=== PATIENT | female | born 1940 | race Caucasian/White ===

== ENCOUNTER 2018-12-08 08:48 | Inpatient (IN) ==
[2018-12-08] MEDS ORDERED: *HR* OxyCODONE Immed Rel 5 MG TABLET PO PRN (13:47)
[2018-12-08] MEDS ORDERED: Naloxone 0.4 MG/ML INJ IVP PRN (13:52)
[2018-12-08] MEDS: amLODIPine 5 MG TABLET PO SCH (14:49)
[2018-12-08] MEDS: Mirtazapine 15 MG TABLET PO SCH (17:03)
--- NOTE | 2018-12-08 19:31 | Orthopedic Operative Note ---
Date of procedure: 12/08/18 Procedure: DISREGARD THIS NOTE. Was there an school office assistant present: No Estimated blood loss (cc): 0
--- NOTE | 2018-12-08 19:35 | Orthopedic Consult Note ---
Date of Encounter: 12/08/18 Time of Encounter: 19:32 Assessment and Plan (1) Fracture of hip Current Visit: No Status: Acute I did discuss the diagnosis in detail with the patient's over the phone.. The patient does have a displaced left femoral neck fracture. Options include palliative care versus left hip hemiarthroplasty. The patient also does have a very large thoracic aortic aneurysm, and this places her at very high risk for the procedure. She is at risk of aneurysm rupture which would cause almost certain . The patient's is well aware of this risk but still wishes to proceed with left hip hemiarthroplasty in hopes of providing comfort to the patient. I feel that this is very reasonable and there is no option with no risk. The risks of surgery discussed included but were not limited to stiffness, bleeding, infection, blood clots, damage to neurovascular structures, tendons, ligaments, and bone. Also discussed was the risk of continued symptoms and possible need for further procedures. I did discuss the anesthesia risks including stroke, heart attack, and . I did discuss the reasonable, foreseeable postoperative course with the patient. They did wish to proceed and he will be by in the morning to sign the consent. Qualifiers: Encounter type: initial encounter Fracture type: closed Laterality: left Qualified Code(s): S72.002A - Fracture of unspecified part of neck of left femur, initial encounter for closed fracture History of Present Illness HPI: This person is a 78-year-old multiply medically comorbid female with a known large thoracic aortic aneurysm measuring about a centimeters. Given her overall health as being managed nonoperatively. Fall yesterday morning resulting in a left displaced femoral neck fracture. She normally ambulates with a walker and is often confused. She has difficulties verbalizing or complaints. She is not able to tell me about her pain. No new injuries or complaints since. She specifically denies any numbness, tingling, or any other associated signs or symptoms. Past Med Surg Social Fam HX - Past Medical History Medical history: aortic aneurysm, cancer, CVA, hyperlipidemia, hypertension, osteoporosis Additional medical history: cerebral aneurosym Psychiatric history: no psych history - Past Surgical History Additional surgical history: cerebral aneurosym. aortic aneurosym. lt breast lumpectomy. lt knee - Social History Smoking Status: Former smoker Smokeless Tobacco Status: No Alcohol use: occasionally Drug use: none Medications and Allergies Calcium Carbonate/Vitamin D3 [Calcium 500 mg-Vit D3 600 Unit] 600 tab PO DAILY 10/07/18 [History] Metoprolol Succinate [Toprol Xl] 100 mg PO DAILY 10/07/18 [History] Potassium Chloride [K-Tab ER] 20 meq PO DAILY 10/07/18 [History] Simvastatin [Zocor] 10 mg PO DAILY 10/07/18 [History] amLODIPine [Norvasc] 5 mg PO DAILY 10/07/18 [History] Mirtazapine [Remeron] 7.5 mg PO QPM 12/08/18 [History] 3 Allergy/AdvReac Type Severity Reaction Status Date / Time aspirin Allergy Nausea Verified 10/07/18 10:16 ROS unobtainable: due to mental status Physical Exam - Constitutional Vitals: Temp Pulse Resp BP Pulse Ox 98.2 F 84 16 135/96 93 12/08/18 10:34 12/08/18 10:34 12/08/18 10:34 12/08/18 10:34 12/08/18 11:14 Constitutional -Vitals reviewed -The patient is well developed and well nourished. -Mood is pleasant. -The patient is well groomed. Psychiatric -Confusion Respiratory: -Respiratory effort normal Abdomen: -Soft abdomen -Non tender -Non distended: Left upper extremity: -No deformities. The overlying skin is intact. No obvious signs of acute trauma. -No tenderness to palpation throughout. -No significant pain with passive motion of the shoulder, elbow, wrist, and fingers within the limits of the bed. -Unable to neurologically assess due to her mental status. -Radial pulse is present; Fingers have good capillary refill. Right upper extremity: -No deformities. The overlying skin is intact. No obvious signs of acute trauma. -No tenderness to palpation throughout. -No significant pain with passive motion of the shoulder, elbow, wrist, and fingers within the limits of the bed. -Unable to neurologically assess due to her mental status. -Radial pulse is present; Fingers have good capillary refill. Left lower extremity: -The extremity is shortened and externally rotated. The overlying skin is intact. -There is mild tenderness in the groin region as well as the proximal lateral thigh. -Ranging of the left hip does cause pain. -No tenderness along the distal thigh, leg, ankle, foot, or toes. -Able to dorsiflex and plantarflex the ankle and toes. -Unable to neurologically assess due to her mental status. -Toes have good capillary refill. Right lower extremity: -No deformities. The overlying skin is intact. No obvious signs of acute traum a. -No tenderness to palpation throughout. -No pain with passive motion of the hip, knee, ankle, and toes within the limits of the bed. -No pain with axial loading of the thigh. -Able to dorsiflex and plantarflex the ankle and toes. -Unable to neurologically assess due to her mental status. -Toes have good capillary refill. Diagnostic Imaging: I did personally review and interpret x-rays the left hip show a displaced femoral neck fracture. X-rays the left knee do not show any fractures or dislocations. Results - Labs Labs: All other labs normal. Consult Discharge Plan - Plan Referrals: Martin Garcia MD [Primary Care Provider] -
[2018-12-08 21:40] LABS: Basophils % 0.3 %; Hematocrit 37.1 % (35.3-44.9); Hemoglobin 11.9 g/dL (11.5-15.4); Immature Granulocytes % 0.4 % (0-4); Lymphocytes # 1.2 K/mcL (0.6-4.6); Lymphocytes % 8.8 %; Mean Corpuscular HGB Conc 32.1 g/dL (31.6-35.5); Mean Corpuscular Hemoglobin 29.2 pg (28.0-33.3); Mean Corpuscular Volume 91.2 fL (83.0-100.0); Monocytes # 1.2 K/mcL (0.0-1.3); Monocytes % 9.1 %; Neutrophils # 10.7 K/mcL (1.6-8.9); Platelet Count 126 K/mcL (140-400); Red Blood Count 4.07 M/mcL (3.82-4.97); Red Cell Distribution Width 13.8 % (11.5-14.5); Segmented Neutrophils % 81.4 %
[2018-12-08 21:57] LABS: INR 1.1; Prothrombin Time 12.3 Seconds (9.4-12.1)
[2018-12-08 21:59] LABS: Calcium 9.6 mg/dL (8.6-10.3)
--- NOTE | 2018-12-09 06:21 | Internal Med History&Physical ---
Date of Encounter: 12/08/18 Time of Encounter: 19:00 Internal Medicine - H&P: HPI Chief complaint: Left hip fx Admitted From: Home Plans for Post Hospital Care: Transfer [facility] History of present illness: The patient is an 78-year-old woman. She is brought to our hospital from an outside facility, after she experienced a fall/sustained displaced fracture of left hip. She has had history of her multiple falls. They usually happen when she is not using her walker. She has not experienced any chest pain or difficulty breathing recently. Denies coughing and wheezing. She complains of left hip pain. PAST MEDICAL HX: She has had long-standing hypertension, hyperlipidemia and osteoporosis. She has had long-standing thoracic aortic aneurysm. She was diagnosed with cerebral aneurysm in the past. PAST FAMILY HX: Not obtainable from the patient; she is a very poor historian. PAST SOCIAL HX: She is a former smoker. There is no history of alcohol or drug use. REVIEW OF SYSTEMS: All 14 organ systems were reviewed by me with the patient. Positive and pertinent negative findings are listed above. The rest of organ systems is negative. PHYSICAL EXAM: Skin: Free of rash and discoloration. Eyes: Sclera is white. There is no discharge from eyes. ENMT: Oral/pharyngeal mucosa is normal in appearance. There is no discharge from nose or ears. Respiratory: Normal breath sounds with no crackles and wheezes bilaterally. CV: Heart is regular with no gallop or murmur. GI: Abdomen is flat and soft with no palpable mass or visceromegaly. : There is no tenderness in patient's flanks bilaterally. Neuro exam: He has good strength in upper and lower extremities. He has normal eye movements. Psychiatric: He has normal affect. His thought process is appropriate to the situation. ADDITIONAL DATA: X-rays of left hip done in an outside facility showed displaced left hip fracture. Hemoglobin is 11.9 with WBC at 13.1 thousand and platelet count of 126,000. She has normal electrolytes. Creatinine is 1.25. Random glucose is 155. A/P: Displaced left hip fracture. Dr. Draper, orthopedic surgery has been consulted. She will likely need surgical repair despite of the fact that her thoracic aortic aneurysm with severe under increased risk. Thoracic aortic aneurysm. Seems to be stable. Hypertension. Under control. To continue Toprol-XL and Norvasc. Osteoporosis. She takes calcium carbonate/vitamin D3. Past Med Surg Social Fam HX - Past Medical History Medical history: aortic aneurysm, cancer, CVA, hyperlipidemia, hypertension, osteoporosis Additional medical history: cerebral aneurosym Psychiatric history: no psych history - Past Surgical History Additional surgical history: cerebral aneurosym. aortic aneurosym. lt breast lumpectomy. lt knee - Social History Smoking Status: Former smoker Smokeless Tobacco Status: No Alcohol use: occasionally Drug use: none Internal Medicine - H&P: Meds Calcium Carbonate/Vitamin D3 [Calcium 500 mg-Vit D3 600 Unit] 600 tab PO DAILY 10/07/18 [History] Metoprolol Succinate [Toprol Xl] 100 mg PO DAILY 10/07/18 [History] Potassium Chloride [K-Tab ER] 20 meq PO DAILY 10/07/18 [History] Simvastatin [Zocor] 10 mg PO DAILY 10/07/18 [History] amLODIPine [Norvasc] 5 mg PO DAILY 10/07/18 [History] Mirtazapine [Remeron] 7.5 mg PO QPM 12/08/18 [History] Allergy/AdvReac Type Severity Reaction Status Date / Time aspirin Allergy Nausea Verified 10/07/18 10:16 - Constitutional Vitals: Temp Pulse Resp BP Pulse Ox 98.8 F 87 15 151/90 95 12/09/18 01:18 12/09/18 01:18 12/09/18 01:18 12/09/18 01:18 12/09/18 01:18 General appearance: Present: A&O X 2, no acute distress Exam: xx Internal Med - H&P Results - Labs CBC & Chem 7: 12/08/18 21:18 12/08/18 21:18 Labs: Short CBC 12/08/18 Range/Units 21:18 WBC 13.1 H (4.3-11.1) K/mcL Hgb 11.9 (11.5-15.4) g/dL Hct 37.1 (35.3-44.9) % Plt Count 126 L (140-400) K/mcL Neutrophils # 10.7 H (1.6-8.9) K/mcL BMP 12/08/18 21:18 Sodium 138 Potassium 5.0 Chloride 102 Carbon Dioxide 23 BUN 29 H Creatinine 1.25 H Glucose 155 H Calcium 9.6 - Assessment and plan (1) Fracture of hip Current Visit: No Status: Acute Qualifiers: Encounter type: initial encounter Fracture type: closed Laterality: left Qualified Code(s): S72.002A - Fracture of unspecified part of neck of left femur, initial encounter for closed fracture (2) Thoracic aneurysm without mention of rupture Current Visit: Yes Status: Chronic Qualifiers: Presence of rupture: without rupture Qualified Code(s): I71.2 - Thoracic aortic aneurysm, without rupture (3) HTN (hypertension) Current Visit: Yes Status: Chronic Qualifiers: Hypertension type: essential hypertension Qualified Code(s): I10 - Essential (primary) hypertension (4) HLD (hyperlipidemia) Current Visit: Yes Status: Chronic Qualifiers: Hyperlipidemia type: unspecified Qualified Code(s): E78.5 - Hyperlipidemia, unspecified - Time Spent With Patient Total time spent is greater than 50% in coordination of care (as documented) at patient's floor/unit and/or counseling patient: 25 - 35 minutes
[2018-12-09] MEDS: amLODIPine 5 MG TABLET PO SCH (07:53)
[2018-12-09] MEDS ORDERED: Metoprolol XL (24 HR) Succ 50 MG TAB.ER.24H PO SCH (09:00)
--- NOTE | 2018-12-09 11:16 | Internal Med Progress Note ---
Hospitalist Progress Note - Encounter Date of Encounter: 12/09/18 Time of Encounter: 11:00 - Subjective Interval History: Patient presented from [facility] found to have placed left femoral neck fracture status post fall Orthopedics consulted with recommendations for surgical repair - Exam Vitals: Temp Pulse Resp BP Pulse Ox 98.6 F 92 15 111/82 93 12/09/18 07:33 12/09/18 07:33 12/09/18 07:33 12/09/18 07:33 12/09/18 07:33 Exam: Gen.: Nonacute distress, alert and oriented 3 ENT: Mucosal membranes moist Psych: Mood appropriate Skin: Normal color - Assessment and Plan (1) Left displaced femoral neck fracture Current Visit: Yes Status: Acute Assessment and Plan: Patient found to have acute displaced left femoral neck fracture on imaging Orthopedics consulted with recommendation for surgical repair (2) Thoracic aneurysm without mention of rupture Current Visit: Yes Status: Chronic Assessment and Plan: Patient found to have large aneurysm of the descending thoracic aorta measuring 7.[address] on 10/07/18 Patient has been evaluated at [place] by vascular team and apparently patient not surgical candidate per who was at bedside (3) HTN (hypertension) Current Visit: Yes Status: Chronic Assessment and Plan: Continue home dose of beta tello and calcium channel tello (4) HLD (hyperlipidemia) Current Visit: Yes Status: Chronic Assessment and Plan: Continue statin DVT Prophylaxis: DVT prophylaxis per orthopedic recommendations - Time Spent with Patient Total time spent is greater than 50% in coordination of care (as documented) at patient's floor/unit and/or counseling patient: Internal Medicine: Result - Labs CBC & Chem 7: 12/09/18 11:00 12/09/18 11:00 Labs: Short CBC 12/08/18 Range/Units 21:18 WBC 13.1 H (4.3-11.1) K/mcL Hgb 11.9 (11.5-15.4) g/dL Hct 37.1 (35.3-44.9) % Plt Count 126 L (140-400) K/mcL Neutrophils # 10.7 H (1.6-8.9) K/mcL BMP 12/08/18 21:18 Sodium 138 Potassium 5.0 Chloride 102 Carbon Dioxide 23 BUN 29 H Creatinine 1.25 H Glucose 155 H Calcium 9.6 - ABG Interpretation ABG results: PT/INR, D-dimer PT 12.3 Seconds (9.4-12.1) H 12/08/18 21:18 Consult Discharge Plan - Plan Referrals: Martin Garcia MD [Primary Care Provider] - (2) Thoracic aneurysm without mention of rupture Qualifiers: Presence of rupture: without rupture Qualified Code(s): I71.2 - Thoracic aortic aneurysm, without rupture (3) HTN (hypertension) Qualifiers: Hypertension type: essential hypertension Qualified Code(s): I10 - Essential (primary) hypertension (4) HLD (hyperlipidemia) Qualifiers: Hyperlipidemia type: unspecified Qualified Code(s): E78.5 - Hyperlipidemia, unspecified
[2018-12-09 11:33] LABS: Basophils % 0.3 %; Eosinophils % 0.1 %; Hematocrit 34.9 % (35.3-44.9); Hemoglobin 11.2 g/dL (11.5-15.4); Immature Granulocytes % 0.6 % (0-4); Lymphocytes # 0.9 K/mcL (0.6-4.6); Lymphocytes % 6.9 %; Mean Corpuscular HGB Conc 32.1 g/dL (31.6-35.5); Mean Corpuscular Hemoglobin 28.7 pg (28.0-33.3); Mean Corpuscular Volume 89.5 fL (83.0-100.0); Mean Platelet Volume 11.1 fL (9.4-12.4); Monocytes % 7.7 %; Neutrophils # 10.5 K/mcL (1.6-8.9); Platelet Count 108 K/mcL (140-400); Red Cell Distribution Width 13.9 % (11.5-14.5); Segmented Neutrophils % 84.4 %
[2018-12-09 11:42] LABS: BUN/Creatinine Ratio 25 (6-26); Blood Urea Nitrogen 27 mg/dL (8-23); Calcium 9.2 mg/dL (8.6-10.3); Carbon Dioxide 24 mEq/L (23-29); Chloride 102 mEq/L (98-107); Glucose 133 mg/dL (70-105); Osmolality,Calculated 293 (280-300); Sodium 138 mEq/L (136-145); eGFR For Non-African Americans 50 (> 60)
--- NOTE | 2018-12-09 14:23 | Anesthesia Evaluation PreOp ---
Date of Encounter: 12/09/18 Time of Encounter: 14:20 - Past History Planned Operation: Left Paul-Arthroplasty Hip Cardiac History: HTN, Hyperlipidemia, Other (Thoracic Aneurysm) Pulmonary History: Denies Any Significant HX [employer]ESSION[employer] History: CVA (Cerebral Aneurysm), Other (Dementia) Other Medical History: Denies Any Significant HX Anesthesia History: No Prior Anesthetic Complications : No Test: Negative Alcohol Use: occasionally Drug use: none Medications and Allergies Calcium Carbonate/Vitamin D3 [Calcium 500 mg-Vit D3 600 Unit] 600 tab PO DAILY 10/07/18 [History] Metoprolol Succinate [Toprol Xl] 100 mg PO DAILY 10/07/18 [History] Potassium Chloride [K-Tab ER] 20 meq PO DAILY 10/07/18 [History] Simvastatin [Zocor] 10 mg PO DAILY 10/07/18 [History] amLODIPine [Norvasc] 5 mg PO DAILY 10/07/18 [History] Mirtazapine [Remeron] 7.5 mg PO QPM 12/08/18 [History] Allergy/AdvReac Type Severity Reaction Status Date / Time aspirin Allergy Nausea Verified 10/07/18 10:16 - Meds/Allergy Pre-op Review Medications Reviewed: Yes Allergies Reviewed: Yes Beta Blockers on Current Med List: No Anesthesia Results - Labs 12/09/18 11:00 12/09/18 11:00 Anesthesia Exam O2 Sat Weight 40.9 kg O2 Sat by Pulse Oximetry 94 O2 Sat by Pulse Oximetry 93 O2 Sat by Pulse Oximetry 95 O2 Sat by Pulse Oximetry 97 Vital Signs Temp Pulse Resp BP Pulse Ox 98.2 F 84 16 135/96 92 12/08/18 10:34 12/08/18 10:34 12/08/18 10:34 12/08/18 10:34 12/08/18 10:34 Height: 5'7 Weight: 90 lbs NPO (# of Hours): MN Pain Scale: 1 - HEENT Pupil (Motor): Pupils equal, EOMI Oral Opening: Less than or equal to 3 - [employer] LOC: Oriented [employer] Motor: Normal RUE, Normal LUE, Normal RLE, Normal LLE, Normal Face [employer] Sensory: Normal: RUE, LUE, RLE, LLE, Face - Cardiac Rhythm: Regular Murmur: None JVD: No Carotid Bruit: No - Pulmonary Breath Sounds: bilateral Clear Respiratory Effort: Symmetrical Anesthesia Assess/Plan ASA Score: 4 Level of consciousness: Cooperative, Oriented Anesthetic Plan: Spinal Monitoring Plan: Standard Monitors (Discussed SAB, possible GA, agrees to proceed) Recovery Plan: PACU
[2018-12-09] MEDS ORDERED: Ethanol\\Acetic Acid\\Na Ace\\Ben 1,000 ML IRRIG.SOLN IR ONE (15:56)
[2018-12-09] MEDS ORDERED: Lidocaine -MPF 1% 5 ML AMPUL ONE (15:56)
[2018-12-09] MEDS ORDERED: Vancomycin 1,000 MG VIAL ONE (15:56)
[2018-12-09] MEDS ORDERED: *HR* FentaNYL (PF) 100 MCG/2 ML VIAL ONE (15:58)
[2018-12-09] MEDS ORDERED: *HR* Midazolam HCl 2 MG/2 ML VIAL ONE (15:58)
--- NOTE | 2018-12-09 16:07 | Orthopedics Progress Note ---
Date of Encounter: 12/09/18 Time of Encounter: 16:03 - Assessment and Plan (1) Fracture of hip Current Visit: No Status: Acute Qualifiers: Encounter type: initial encounter Fracture type: closed Laterality: left Qualified Code(s): S72.002A - Fracture of unspecified part of neck of left femur, initial encounter for closed fracture Subjective Interval history: S: No new issues or complaints. O: Afebrile and vital signs are stable Left leg is shortened and externally rotated She can grossly flex and extend the ankle and toes A: Displaced left femoral neck fracture P: I did have a long discussion with the patient's family, particularly the who makes medical decisions for the patient. The patient does have a displaced left femoral neck fracture and will proceed with left hip hemiarthroplasty in order to provide pain control for the patient. The is aware that the patient has very high risk for the procedure but wishes to proceed in hopes of achieving pain control. In the setting of an intraoperative complication requiring aggressive forms of treatment, such as chest compressions, they wish to avoid having such measures and would like comfort care only. Objective Vital signs: Vital Signs Temp Pulse Resp BP Pulse Ox 12/09/18 12:52 98.6 F 95 16 131/92 94 12/09/18 07:33 98.6 F 92 15 111/82 93 12/09/18 01:18 98.8 F 87 15 151/90 95 12/08/18 21:12 97.8 F 88 17 142/88 97 Intake and Output 12/09/18 12/09/18 12/09/18 07:59 15:59 23:59 Intake Total 0 / 0 0 / 0 Output Total 100 / 100 250 / 250 Balance -100 / -100 -250 / -250 Intake: Oral 0 / 0 0 / 0 Output: Catheter 100 / 100 250 / 250 Other: Meal Lunch Percent of Meal Consumed 0% Weight 40.9 kg Patient Weight 12/09/18 23:59 Weight 40.9 kg - Labs CBC & BMP: 12/09/18 11:00 12/09/18 11:00 Labs: Abnormal lab results WBC 12.5 K/mcL (4.3-11.1) H 12/09/18 11:00 Hgb 11.2 g/dL (11.5-15.4) L 12/09/18 11:00 Hct 34.9 % (35.3-44.9) L 12/09/18 11:00 Plt Count 108 K/mcL (140-400) L 12/09/18 11:00 Neutrophils # 10.5 K/mcL (1.6-8.9) H 12/09/18 11:00 PT 12.3 Seconds (9.4-12.1) H 12/08/18 21:18 BUN 27 mg/dL (8-23) H 12/09/18 11:00 Est GFR (Non-Af Amer) 50 (> 60) L 12/09/18 11:00 Glucose 133 mg/dL (70-105) H 12/09/18 11:00 Consult Discharge Plan - Plan Referrals: Martin Garcia MD [Primary Care Provider] -
[2018-12-09] MEDS ORDERED: *HR* Propofol 200 MG/20 ML VIAL IVP ONE (16:11)
[2018-12-09] MEDS ORDERED: *HR* PHENYLEPHRINE 1,000 MCG/10 ML SYRINGE IVP ONE (16:12)
[2018-12-09] MEDS ORDERED: Lidocaine -MPF 2% 2 ML VIAL ONE (16:13)
--- NOTE | 2018-12-09 16:28 | Anesthesia Procedures ---
Date of Encounter: 12/09/18 Time of Encounter: 14:20 Procedures: Anesthesia - Epidural/Spinal Patient ID/Chart reviewed: Yes Patient examined: Yes Supplemental Oxygen: Nasal Cannula (2) Supplemental Oxygen Rate (L/min): 2 Sedation: Versed (mg): 1 Sedation: Fentanyl (mcg): 50 Site Prep: Aseptic Technique, Sterile prep and drape, 0.5% Chlorhexidine/Alcohol Patient position: right lateral decubitus Local Anesthetic: Lidocaine 1% Amount of Local Anesthetic used: 3 Interspace Used: L3-L4 Blood: No CSF: Yes Paresthesia: No Spinal Needle Gauge: 22 Spinal Dose: 12 mg isobaric marcaine Procedure: Pt Rt Lateral Decubitus, sterile Prep Drape Chlorhexadine, Midline L3-4, plus CSF using 22 gauge spinal needle Patient tolerated procedure well
[2018-12-09] MEDS ORDERED: Ringers Solution, Lactated 1,000 ML ONE (18:16)
--- NOTE | 2018-12-09 18:35 | Orthopedic Operative Note ---
Date of procedure: 12/09/18 Procedure: OPERATIVE REPORT DATE OF PROCEDURE: 12/09/2018 SURGEON: Kirk Draper MD ALBERENE STONE SETTER(S): There were no assistants PREOPERATIVE DIAGNOSIS: Left displaced femoral neck fracture POSTOPERATIVE DIAGNOSIS: Left displaced femoral neck fracture PROCEDURE: Left hip hemiarthroplasty ANESTHESIA: MAC and spinal PREOPERATIVE ANTIBIOTICS: 2 g of Ancef ESTIMATED BLOOD LOSS: 150 milliliters SPECIMENS: Left femoral head IMPLANTS: Biomet Echo Fracture stem size 9 with standard offset; 44 mm bipolar head with +9 neck PREOPERATIVE NOTE AND INDICATIONS: This patient is a 78-year-old female who sustained a displaced left femoral neck fracture. She does have an a centimeter thoracic aortic aneurysm and was high risk. The family did wish to proceed with left hip hemiarthroplasty for pain control purposes. The surgical plan was discussed with the patient spouse. The risks, benefits, alternatives, and potential complications of this procedure were discussed with the patient including injury to veins, arteries, nerves, tendons, ligaments, and bone. Also discussed were the risks of infection, bleeding, pain, blood clots, the possible need for a blood transfusion, the possible need for further procedures, heart attack, stroke, and . Additional risks include dislocation, fracture, and hardware loosening. All of this was explained in simple terms, and the patient's spouse verbalized understanding and wished to proceed. Consent was given to proceed with surgery. PROCEDURE: The patient was seen in the preoperative holding area where the identify and the consent were confirmed. The left hip was marked. Final questions were answered. The patient was brought back to the operating room. A huddle was performed with the patient and all vital surgical team members confirming patient identity, the correct procedure, and the correct operative site. General anesthesia was administered. The patient was placed supine on the operating room table and then placed in the right lateral decubitus position. The axillary roll was placed and all bony prominences were padded. The left lower extremity was prepped and draped in the usual sterile fashion. A surgical time out was performed immediately preceding the incision with all personnel in the operating room to confirm patient identity, the correct operative site and extremity, correct radiographic studies, availability of appropriate surgical equipment, and agreement on the planned procedure. A 15 cm longitudinal curvilinear incision was made and dissection proceeded through the subcutaneous tissue using a Bovie for electrocautery. The fascia was encountered and incised splitting the fibers of the gluteus serina proximally. The Charnley retractor was placed. A Cobra was placed under the gluteus medius and the piriformis was taken down and tagged. While internally rotating the femur the short external rotators and the capsule was taken down in 1 sleeve. This exposed the fracture and an osteotomy was made 1 cm above the lesser trochanter. The femoral head was removed with a corkscrew. Pulvinar and the round ligament were debrided. The cartilage of the acetabulum was intact. The femoral head was sized and the 44 mm sizer fit appropriately. The femoral shaft was elevated and a box osteotome was used to lateralize. The canal finder was used and shaft reaming went up to a size 11 mm. Broaching commenced and the 10 mm broach fit nicely and had good rotational stability. The trial head and neck were placed and the hip was articulated and felt to be accurate length. The hip was stable through a functional range of motion. The initial plan was for a cemented stem. The hip was disarticulated and the trial components were removed. The hip was washed with 3 L of saline. The definitive collared 9 mm stem was placed in the canal to check fit, and actually fit very nicely with excellent rotational stability. Therefore, it was left in place as a press fit. The trial head was placed with a standard neck and 42 mm head. The hip was articulated and noted to be short. After trying the +6 and +9, the +9 neck felt to be a good length. The definitive head and neck were impacted on to the femoral head. After final irrigation 1 g of vancomycin powder was placed into the hip joint and the capsule was closed with FiberWire stitches through drill holes in the greater trochanter and the piriformis was repaired to the gluteus medius insertion. The Charnley retractor was removed and the wound was irrigated and the fascia closed with 0 Vicryl stitches. The skin was closed with a combination of 0 Vicryl, 3-0 Vicryl, and lew. A sterile honeycomb dressing was applied. The patient was placed supine in her hospital bed. The instrument, sponge, and needle counts were correct after wound closure. POST OPERATIVE PLAN: Weight Bearing: Weightbearing as tolerated to bilateral lower extremities Activity: Activities as tolerated with the assistance of therapy Wound Care: Keep the dressing clean, dry, and intact. Pain Control: Per the hospitalist Perioperative antibiotic prophylaxis: 2 g of Ancef Social work for discharge planning Follow Up: 2 weeks Was there an cashier assistant present: No Estimated blood loss (cc): 1
[2018-12-09] MEDS ORDERED: Ondansetron 4 MG/2 ML VIAL IVP PRN (19:27)
[2018-12-09] MEDS ORDERED: Naloxone 0.4 MG/ML INJ IVP PRN (19:27)
[2018-12-10] MEDS: *HR* Enoxaparin 30 MG/0.3 ML SYRINGE SQ SCH (05:56)
--- NOTE | 2018-12-10 07:48 | Orthopedics Progress Note ---
Date of Encounter: 12/10/18 Time of Encounter: 07:42 - Assessment and Plan (1) Fracture of hip Current Visit: No Status: Acute Qualifiers: Encounter type: initial encounter Fracture type: closed Laterality: left Qualified Code(s): S72.002A - Fracture of unspecified part of neck of left femur, initial encounter for closed fracture Subjective Interval history: S: No new complaints. Pain controlled O: Afebrile and vital signs are stable Dressing is clean, dry, and intact No significant pain with passive motion of the left hip. Neurovascularly intact distally Xray shows good alignment of the prosthesis Linear shadow on one view just distal to the implant, probable nutrient vessel. A: Displaced left femoral neck fracture P: At this point I will obtain a CT scan just to confirm that there is rosalina a nondisplaced fracture at the tip of the stem. Otherwise therapy today after the CT scan Carr out today Low dose Lovenox for DVT prophylaxis 28 days I will change the dressing tomorrow. Objective Vital signs: Vital Signs Temp Pulse Resp BP Pulse Ox 12/10/18 07:18 98.8 F 94 17 110/79 94 12/10/18 05:08 98.6 F 99 14 100/82 100 12/10/18 00:33 98.2 F 64 16 119/53 98 12/09/18 19:19 97.2 F L 90 14 118/88 92 12/09/18 18:58 97.2 F L 81 16 98 12/09/18 18:48 82 16 122/98 98 12/09/18 18:38 97.2 F L 83 16 115/92 96 12/09/18 18:28 83 16 108/86 95 12/09/18 18:18 81 16 104/85 98 12/09/18 18:08 97.2 F L 82 16 101/77 98 12/09/18 16:19 87 95/66 96 12/09/18 12:52 98.6 F 95 16 131/92 94 Intake and Output 12/09/18 12/09/18 12/10/18 15:59 23:59 07:59 Intake Total 0 / 0 200 / 200 Output Total 250 / 250 150 / 150 400 / 400 Balance -250 / -250 -150 / -150 -200 / -200 Intake: IV Fluids 100 / 100 Ancef 2,000 MG In 0.9 % Sodium 100 / 100 Chloride 100 ML @ 200 mls/hr IVPB Q8HR OSIEL Rx#:[id number] Oral 0 / 0 100 / 100 Output: Urine 0 / 0 400 / 400 Estimated Blood Loss 150 / 150 Catheter 250 / 250 Other: Meal Lunch Percent of Meal Consumed 0% Stool Size Small Stool Consistency soft Stool Color Brown # Bowel Movements 1 - Labs CBC & BMP: 12/09/18 11:00 12/09/18 11:00 Labs: Abnormal lab results WBC 12.5 K/mcL (4.3-11.1) H 12/09/18 11:00 Hgb 11.2 g/dL (11.5-15.4) L 12/09/18 11:00 Hct 34.9 % (35.3-44.9) L 12/09/18 11:00 Plt Count 108 K/mcL (140-400) L 12/09/18 11:00 Neutrophils # 10.5 K/mcL (1.6-8.9) H 12/09/18 11:00 PT 12.3 Seconds (9.4-12.1) H 12/08/18 21:18 BUN 27 mg/dL (8-23) H 12/09/18 11:00 Est GFR (Non-Af Amer) 50 (> 60) L 12/09/18 11:00 Glucose 133 mg/dL (70-105) H 12/09/18 11:00 Consult Discharge Plan - Plan Referrals: Martin Garcia MD [Primary Care Provider] -
[2018-12-10] MEDS: Metoprolol XL (24 HR) Succ 50 MG TAB.ER.24H PO SCH (08:07)
[2018-12-10] MEDS: amLODIPine 5 MG TABLET PO SCH (08:07)
[2018-12-10 08:11] LABS: Hematocrit 32.8 % (35.3-44.9); Hemoglobin 9.8 g/dL (11.5-15.4)
[2018-12-10 08:28] LABS: Calcium 8.6 mg/dL (8.6-10.3)
--- NOTE | 2018-12-10 12:21 | Internal Med Progress Note ---
Hospitalist Progress Note - Encounter Date of Encounter: 12/10/18 Time of Encounter: 09:20 - Subjective Interval History: Patient is lying down in bed. She reports that her pain is well controlled. Denies any fevers or chills overnight. No dizziness or lightheadedness. She underwent surgery yesterday evening with no acute issues. - Exam Vitals: Temp Pulse Resp BP Pulse Ox 97.7 F 79 15 118/88 93 12/10/18 11:10 12/10/18 11:10 12/10/18 11:10 12/10/18 11:10 12/10/18 11:10 Exam: General: Patient is alert, no acute distress, oriented x 3 ENT: Mucous membranes moist Respiratory: Good respiratory effort. Normal breath sounds. No wheezing or crackles. Cardiovascular: Regular rate and rhythm. s1 and s2 normal. systolic murmur present. No pedal edema Abdomen: Abdomen is soft, nontender. Bowel sounds are present Musculoskeletal: Left hip surgical site bandaged. Tender to palpation. Skin: warm, dry, intact. Pallor present Neuro: Alert oriented x 3 normal cranial nerves, no focal deficits - Assessment and Plan (1) Left displaced femoral neck fracture Current Visit: Yes Status: Acute Assessment and Plan: Patient is status post left hip hemiarthroplasty. Orthopedics following. Awaiting physical therapy evaluation. Moderate risk for complications. (2) Thoracic aneurysm without mention of rupture Current Visit: Yes Status: Chronic Assessment and Plan: Continue follow-up with accounting coordinator as outpatient. Patient has previously been deemed to be not a surgical candidate for aneurysm repair (3) HTN (hypertension) Current Visit: Yes Status: Chronic Assessment and Plan: Blood pressure is well controlled at this time. Continue metoprolol (4) HLD (hyperlipidemia) Current Visit: Yes Status: Chronic Assessment and Plan: Continue simvastatin (5) Pelvic fracture Current Visit: Yes Status: Acute Assessment and Plan: Patient with acute right parasymphyseal fracture and subacute sacral and left pubic rami fracture on CT scan done today. Continue supportive care. Pain control. Follow orthopedics recommendations DVT Prophylaxis: lovenox 30mg SQ daily - Time Spent with Patient Total time spent is greater than 50% in coordination of care (as documented) at patient's floor/unit and/or counseling patient: Internal Medicine: Result - Labs CBC & Chem 7: 12/10/18 07:31 12/10/18 07:31 Labs: Short CBC 12/10/18 Range/Units 07:31 Hgb 9.8 L (11.5-15.4) g/dL Hct 32.8 L (35.3-44.9) % BMP 12/10/18 07:31 Sodium 138 Potassium 4.0 Chloride 104 Carbon Dioxide 23 BUN 33 H Creatinine 1.15 Glucose 133 H Calcium 8.6 - ABG Interpretation ABG results: PT/INR, D-dimer PT 12.3 Seconds (9.4-12.1) H 12/08/18 21:18 - Impressions Impressions Hip X-Ray 12/09/18 18:07 IMPRESSION: Satisfactory alignment, left hip arthroplasty. D/ / Robbie Flynn MD / Robbie Flynn MD Interpreting Provider: Robbie Flynn MD Hip CT 12/10/18 07:40 IMPRESSION: 1. Acute right parasymphyseal fracture, new since 10/07/2018. 2. Subacute sacral and left pubic rami fractures. 3. No bony complication at the left hip arthroplasty site. 4. Numerous foci of soft tissue gas involving the left hip musculature, consistent with recent surgery. 5. Large amount of stool in the rectum. 6. Air within the urinary bladder, correlate for recent instrumentation. D/ / 12/10/2018 10:49:46 Huber Mendoza MD / sue Interpreting Provider: Huber Mendoza MD Consult Discharge Plan - Plan Referrals: Martin Garcia MD [Primary Care Provider] - (2) Thoracic aneurysm without mention of rupture Qualifiers: Presence of rupture: without rupture Qualified Code(s): I71.2 - Thoracic aortic aneurysm, without rupture (3) HTN (hypertension) Qualifiers: Hypertension type: essential hypertension Qualified Code(s): I10 - Essential (primary) hypertension (4) HLD (hyperlipidemia) Qualifiers: Hyperlipidemia type: unspecified Qualified Code(s): E78.5 - Hyperlipidemia, unspecified (5) Pelvic fracture Qualifiers: Encounter type: initial encounter Pelvic bone location: multiple parts Fracture type: closed Fracture alignment: without disruption of pelvic ring Qualified Code(s): S32.82XA - Multiple fractures of pelvis without disruption of pelvic ring, initial encounter for closed fracture
[2018-12-10] MEDS: *HR* OxyCODONE Immed Rel 5 MG TABLET PO PRN (23:15)
[2018-12-10] MEDS: Mirtazapine 15 MG TABLET PO SCH (23:18)
[2018-12-11] MEDS: *HR* Enoxaparin 30 MG/0.3 ML SYRINGE SQ SCH (06:24)
[2018-12-11 07:39] LABS: Basophils % 0.2 %; Hematocrit 26.6 % (35.3-44.9); Hemoglobin 8.6 g/dL (11.5-15.4); Immature Granulocytes % 0.9 % (0-4); Lymphocytes # 0.8 K/mcL (0.6-4.6); Lymphocytes % 7.5 %; Mean Corpuscular HGB Conc 32.3 g/dL (31.6-35.5); Mean Corpuscular Hemoglobin 29.2 pg (28.0-33.3); Mean Corpuscular Volume 90.2 fL (83.0-100.0); Mean Platelet Volume 12.3 fL (9.4-12.4); Monocytes # 0.8 K/mcL (0.0-1.3); Monocytes % 7.2 %; Neutrophils # 9.4 K/mcL (1.6-8.9); Nucleated Red Blood Cells 0.4 /100 WBC (0); Red Blood Count 2.95 M/mcL (3.82-4.97); Red Cell Distribution Width 13.7 % (11.5-14.5); Segmented Neutrophils % 84.2 %
[2018-12-11 07:40] LABS: Platelet Count 94 K/mcL (140-400)
[2018-12-11 08:00] LABS: Calcium 8.1 mg/dL (8.6-10.3); Potassium 3.6 mEq/L (3.5-5.1)
[2018-12-11] MEDS: Metoprolol XL (24 HR) Succ 50 MG TAB.ER.24H PO SCH (10:25)
[2018-12-11] MEDS: amLODIPine 5 MG TABLET PO SCH (10:25)
[2018-12-11] MEDS: Ringers Solution, Lactated 1,000 ML IVC SCH ×2 (13:44→19:04)
--- NOTE | 2018-12-11 15:11 | Internal Med Progress Note ---
Hospitalist Progress Note - Encounter Date of Encounter: 12/11/18 Time of Encounter: 09:30 - Subjective Interval History: Patient is lying down in bed. Very somnolent. Awakes but falls asleep easily. No acute issues reported overnight. However patient has poor appetite and has not eaten much since hospitalization. Discussed this with the patient's later today. He reports that patient has always eaten very little since her hospitalization in October. She will drink milkshakes and liquids without any issues. - Exam Vitals: Temp Pulse Resp BP Pulse Ox 98.3 F 80 16 129/98 94 12/11/18 12:06 12/11/18 12:06 12/11/18 12:06 12/11/18 12:06 12/11/18 12:06 Exam: General: Patient is very somnolent but awakes easily. ENT: Mucous membranes moist Respiratory: Good respiratory effort. Normal breath sounds. No wheezing or crackles. Cardiovascular: Regular rate and rhythm. s1 and s2 normal No clicks, rubs, gallops, or murmurs. No pedal edema Abdomen: Abdomen is soft, nontender. Bowel sounds are present Musculoskeletal: Tenderness to palpation at left hip Skin: warm, dry, intact. Neuro: Alert oriented x 3 normal cranial nerves, no focal deficits - Assessment and Plan (1) Left displaced femoral neck fracture Current Visit: Yes Status: Acute Assessment and Plan: Continue supportive care. Pain control. On Lovenox for anticoagulation. Continue PTOT. Awaiting placement to skilled rehabilitation. Patient's status has been confirmed to be DNR/DNI per discussion with who is the DPOA. also does not want any kind of artificial methods of feeding in case patient does not eat. He wishes for her to go to [facility]. (2) Thoracic aneurysm without mention of rupture Current Visit: Yes Status: Chronic Assessment and Plan: Follow-up outpatient with PCP. Patient is not a surgical candidate. (3) HTN (hypertension) Current Visit: Yes Status: Chronic Assessment and Plan: Blood pressure remains well controlled (4) HLD (hyperlipidemia) Current Visit: Yes Status: Chronic Assessment and Plan: Continue simvastatin (5) Pelvic fracture Current Visit: Yes Status: Acute Assessment and Plan: Old fracture per . Supportive care. No surgical intervention needed at this time. (6) Anemia Current Visit: Yes Status: Acute Assessment and Plan: Acute on chronic anemia. Hemoglobin 8.6 today. Likely dilutional along with fracture and intraoperative bleeding. We will continue to monitor blood counts closely. No overt bleeding. DVT Prophylaxis: Continue subcutaneous Lovenox - Time Spent with Patient Total time spent is greater than 50% in coordination of care (as documented) at patient's floor/unit and/or counseling patient: Internal Medicine: Result - Labs CBC & Chem 7: 12/11/18 07:03 12/11/18 07:03 Labs: Short CBC 12/11/18 Range/Units 07:03 WBC 11.1 (4.3-11.1) K/mcL Hgb 8.6 L (11.5-15.4) g/dL Hct 26.6 L (35.3-44.9) % Plt Count 94 L (140-400) K/mcL Neutrophils # 9.4 H (1.6-8.9) K/mcL BMP 12/11/18 07:03 Sodium 138 Potassium 3.6 Chloride 103 Carbon Dioxide 22 L BUN 44 H Creatinine 1.17 Glucose 140 H Calcium 8.1 L - ABG Interpretation ABG results: PT/INR, D-dimer PT 12.3 Seconds (9.4-12.1) H 12/08/18 21:18 Consult Discharge Plan - Plan Referrals: Martin Garcia MD [Primary Care Provider] - (2) Thoracic aneurysm without mention of rupture Qualifiers: Presence of rupture: without rupture Qualified Code(s): I71.2 - Thoracic aortic aneurysm, without rupture (3) HTN (hypertension) Qualifiers: Hypertension type: essential hypertension Qualified Code(s): I10 - Essential (primary) hypertension (4) HLD (hyperlipidemia) Qualifiers: Hyperlipidemia type: unspecified Qualified Code(s): E78.5 - Hyperlipidemia, unspecified (5) Pelvic fracture Qualifiers: Encounter type: initial encounter Pelvic bone location: multiple parts Fracture type: closed Fracture alignment: without disruption of pelvic ring Qualified Code(s): S32.82XA - Multiple fractures of pelvis without disruption of pelvic ring, initial encounter for closed fracture (6) Anemia Qualifiers: Anemia type: other cause Other causes of anemia: acute posthemorrhagic Qualified Code(s): D62 - Acute posthemorrhagic anemia
[2018-12-11] MEDS: Mirtazapine 15 MG TABLET PO SCH ×2 (19:04→20:20)
--- NOTE | 2018-12-11 19:08 | Orthopedics Progress Note ---
Date of Encounter: 12/11/18 Time of Encounter: 07:45 - Assessment and Plan (1) Fracture of hip Current Visit: No Status: Acute Qualifiers: Encounter type: initial encounter Fracture type: closed Laterality: left Qualified Code(s): S72.002A - Fracture of unspecified part of neck of left femur, initial encounter for closed fracture Subjective Interval history: LATE ENTRY OF 07:45 ENCOUNTER S: No new complaints. Pain controlled O: Afebrile and vital signs are stable Dressing is changed; wound is clean and dry. No significant pain with passive motion of the left hip. Neurovascularly intact distally A: Displaced left femoral neck fracture post left hemiarthroplasty P: Resume post op care Objective Vital signs: Vital Signs Temp Pulse Resp BP Pulse Ox 12/11/18 18:39 99.1 F 69 16 127/80 96 12/11/18 12:06 98.3 F 80 16 129/98 94 12/11/18 06:37 97.7 F 96 14 108/88 98 12/11/18 04:04 98.2 F 87 16 135/77 93 12/10/18 22:31 98.0 F 82 16 135/95 96 12/10/18 19:19 98.7 F 72 16 95/66 98 Intake and Output 12/11/18 12/11/18 12/11/18 07:59 15:59 23:59 Intake Total 200 / 200 Output Total 300 / 300 Balance -300 / -300 200 / 200 Intake: Oral 200 / 200 Output: Straight Cath 300 / 300 Other: Meal Dinner Percent of Meal Consumed 5% # Urine Diapers 1 - Labs CBC & BMP: 12/11/18 07:03 12/11/18 07:03 Labs: Abnormal lab results RBC 2.95 M/mcL (3.82-4.97) L 12/11/18 07:03 Hgb 8.6 g/dL (11.5-15.4) L 12/11/18 07:03 Hct 26.6 % (35.3-44.9) L 12/11/18 07:03 Plt Count 94 K/mcL (140-400) L 12/11/18 07:03 Neutrophils # 9.4 K/mcL (1.6-8.9) H 12/11/18 07:03 Nucleated RBCs/100 WBC 0.4 /100 WBC (0) H 12/11/18 07:03 PT 12.3 Seconds (9.4-12.1) H 12/08/18 21:18 Carbon Dioxide 22 mEq/L (23-29) L 12/11/18 07:03 BUN 44 mg/dL (8-23) H 12/11/18 07:03 Est GFR ( Amer) 54 (> 60) L 12/11/18 07:03 Est GFR (Non-Af Amer) 45 (> 60) L 12/11/18 07:03 BUN/Creatinine Ratio 38 (6-26) H 12/11/18 07:03 Glucose 140 mg/dL (70-105) H 12/11/18 07:03 Calcium 8.1 mg/dL (8.6-10.3) L 12/11/18 07:03 Consult Discharge Plan - Plan Referrals: Martin Garcia MD [Primary Care Provider] -
[2018-12-12] MEDS: Ringers Solution, Lactated 1,000 ML IVC SCH (02:51)
[2018-12-12] MEDS: *HR* Enoxaparin 30 MG/0.3 ML SYRINGE SQ SCH (05:26)
[2018-12-12 07:22] LABS: Basophils % 0.2 %; Eosinophils # 0.1 K/mcL (0.0-0.6); Eosinophils % 0.6 %; Hematocrit 24.7 % (35.3-44.9); Hemoglobin 7.9 g/dL (11.5-15.4); Lymphocytes % 9.3 %; Mean Corpuscular Hemoglobin 28.9 pg (28.0-33.3); Mean Corpuscular Volume 90.5 fL (83.0-100.0); Mean Platelet Volume 10.9 fL (9.4-12.4); Monocytes # 0.9 K/mcL (0.0-1.3); Monocytes % 8.4 %; Neutrophils # 8.5 K/mcL (1.6-8.9); Nucleated Red Blood Cells 0.5 /100 WBC (0); Platelet Count 103 K/mcL (140-400); Red Blood Count 2.73 M/mcL (3.82-4.97); Segmented Neutrophils % 80.5 %
[2018-12-12 07:42] LABS: BUN/Creatinine Ratio 41 (6-26); Blood Urea Nitrogen 39 mg/dL (8-23); Calcium 8.2 mg/dL (8.6-10.3); Carbon Dioxide 26 mEq/L (23-29); Chloride 106 mEq/L (98-107); Glucose 122 mg/dL (70-105); Osmolality,Calculated 301 (280-300); Potassium 3.1 mEq/L (3.5-5.1); Sodium 140 mEq/L (136-145); eGFR For Non-African Americans 56 (> 60)
[2018-12-12] MEDS: amLODIPine 5 MG TABLET PO SCH (08:41)
[2018-12-12] MEDS: Metoprolol XL (24 HR) Succ 50 MG TAB.ER.24H PO SCH (08:41)
[2018-12-12] MEDS ORDERED: 0.9 % Sodium Chloride 250 ML ONE (11:23)
--- NOTE | 2018-12-12 15:28 | Discharge Summary ---
- NOTES TO OUTPATIENT PROVIDER Notes to Outpatient Provider: Patient with a history of hypertension, hyperlipidemia and osteoporosis was hospitalized here after a fall resulting in fracture of the left femoral neck. Patient was evaluated by orthopedics and recommended surgery. She underwent surgery with left hip hemiarthroplasty on 12/09. Since then she has been recovering well in the hospital. Patient also has recent pelvic fracture for which she was being managed conservatively. She has been evaluated by physical therapy and recommended placement to skilled rehabilitation. Postoperatively, patient has had decrease in her hemoglobin level most likely due to intraoperative and fracture related blood loss. Her hemoglobin level today was 7.9 and she received 1 unit PRBC transfusion. Patient also has poor appetite and is only drinking liquids which has been ongoing for some time. Patient's CODE STATUS is DNR Comfort Care/DNI. Patient will be discharged to skilled rehabilitation once she is accepted there. She will follow up with orthopedics in 2 weeks. Patient will be on anticoagulation with Lovenox for 28 days postoperatively. Recommend monitoring her hemoglobin levels closely. Orders not resulted at time of discharge: Pending orders 12/09/18 17:37 Surgical Pathology [PTH] Routine Date of Encounter: 12/12/18 Time of Encounter: 15:24 - Discharge Diagnosis (1) Left displaced femoral neck fracture Priority: Primary Status: Acute (2) Thoracic aneurysm without mention of rupture Priority: Secondary Status: Chronic Qualifiers: Presence of rupture: without rupture Qualified Code(s): I71.2 - Thoracic aortic aneurysm, without rupture (3) HTN (hypertension) Priority: Secondary Status: Chronic Qualifiers: Hypertension type: essential hypertension Qualified Code(s): I10 - Essential (primary) hypertension (4) HLD (hyperlipidemia) Priority: Secondary Status: Chronic Qualifiers: Hyperlipidemia type: unspecified Qualified Code(s): E78.5 - Hyperlipidemia, unspecified (5) Pelvic fracture Priority: Secondary Status: Acute Qualifiers: Encounter type: initial encounter Pelvic bone location: multiple parts Fracture type: closed Fracture alignment: without disruption of pelvic ring Qualified Code(s): S32.82XA - Multiple fractures of pelvis without disruption of pelvic ring, initial encounter for closed fracture (6) Anemia Priority: Secondary Status: Acute Qualifiers: Anemia type: other cause Other causes of anemia: acute posthemorrhagic Qualified Code(s): D62 - Acute posthemorrhagic anemia (7) Sacral decubitus ulcer Priority: Secondary () Status: Acute Qualifiers: Pressure injury stage: stage 1 Qualified Code(s): L89.151 - Pressure ulcer of sacral region, stage 1 Hospital course: Ms. Fields is a 78 year old female Patient with a history of hypertension, hyperlipidemia and osteoporosis was hospitalized here after a fall resulting in fracture of the left femoral neck. Patient was evaluated by orthopedics and recommended surgery. She underwent surgery with left hip hemiarthroplasty on 12/09. Since then she has been recovering well in the hospital. Patient also has recent pelvic fracture for which she was being managed conservatively. She has been evaluated by physical therapy and recommended placement to skilled rehabi litation. Postoperatively, patient has had decrease in her hemoglobin level most likely due to intraoperative and fracture related blood loss. Her hemoglobin level today was 7.9 and she received 1 unit PRBC transfusion. Patient also has poor appetite and is only drinking liquids which has been ongoing for some time. Patient's CODE STATUS is DNR Comfort Care/DNI. Patient will be discharged to skilled rehabilitation once she is accepted there. She will follow up with orthopedics in 2 weeks. Patient will be on anticoagulation with Lovenox for 28 days postoperatively. Recommend monitoring her hemoglobin levels closely. Patient has had urinary retention. And had a Carr catheter placed because she also had sacral decubitus ulcer stage I. She will be discharged with Carr catheter for now and will follow up with urology for voiding trial after discharge. Discharge discussed with: patient, family, case management - Time Spent with Patient Total time spent providing and/or coordinating discharge services: Greater than 30 minutes (32 min) - Discharge Medications Prescriptions: Acetaminophen [8Hr Arthritis Pain Relief] 650 mg PO Q8H #90 tablet.er Enoxaparin [Lovenox] 30 mg SQ 0600 #24 syringe Home Medications: Metoprolol Succinate [Toprol Xl] 100 mg PO DAILY 10/07/18 [History] Potassium Chloride [K-Tab ER] 20 meq PO DAILY 10/07/18 [History] Simvastatin [Zocor] 10 mg PO DAILY 10/07/18 [History] amLODIPine [Norvasc] 5 mg PO DAILY 10/07/18 [History] Mirtazapine [Remeron] 7.5 mg PO QPM 12/08/18 [History] Calcium Carbonate [Calcium] 500 mg PO DAILY 12/10/18 [History] Acetaminophen [8Hr Arthritis Pain Relief] 650 mg PO Q8H #90 tablet.er 12/12/18 [Rx] Enoxaparin [Lovenox] 30 mg SQ 0600 #24 syringe 12/12/18 [Rx] Allergies/Adverse Reactions: Allergy/AdvReac Type Severity Reaction Status Date / Time aspirin AdvReac Nausea Verified 12/10/18 14:11 Date of admission: 12/08/18 13:54 Primary care physician: Martin Garcia MD Consults: 12/09/18 19:27 Consult to Occupational Therapy [CONS] Routine Comment: Evaluate, develop and implement POC Reason for Consult: total hip replacement Does patient have active BEDREST order?: No Is patient medically & hemodynamically stable?: Yes Consult to Physical Therapy [CONS] Routine Comment: Evaluate, develop and implement POC Reason for Consult: total hip replacement Does patient have active BEDREST order?: No Is patient medically & hemodynamically stable?: Yes Consult to Offset Proof Press Operator [CONS] Routine Reason for SW Consult: post op joint replacement Discharging clinician: Favian Nicholas Anticipated date of discharge: 12/12/18 - Constitutional Vitals: Temp Pulse Resp BP Pulse Ox 97.3 F L 86 16 127/86 92 12/12/18 11:47 12/12/18 11:47 12/12/18 11:47 12/12/18 11:47 12/12/18 11:47 General appearance: Present: A&O X 2, no acute distress, answers questions appropriately Exam: . - Respiratory Respiratory exam: Present: CTAB. Absent: accessory muscle use, rales, rhonchi, wheezes - Cardiovascular Cardiovascular exam: Present: RRR, +S1, +S2, systolic murmur. Absent: diastolic murmur, gallop, rubs - Extremities Exam Extremities exam: Present: tenderness (Left hip), warm, radial pulses palpable and symmetrical. Absent: calf tenderness, cyanotic, pedal edema - Patient Status Disposition: Transfer SNF Condition: Fair Functional capacity at discharge: wheelchair bound Overall status at discharge: patient is progressing back to baseline - Discharge Instructions Instructions: Joint Replacement Surgery (DC) Follow Up With: Martin Garcia MD [Primary Care Provider] - (in 1-2 weeks) Kirk Draper MD [Partnered Physician] - (in 2-3 weeks) - Diet and Activity Activity: as per physical therapy Diet: advance to your usual diet
--- NOTE | 2018-12-12 15:33 | Physician Discharge Referral ---
ExtendedCare Referral Info Provider in Charge after Transfer: PCP Institutional Level of Care: Skilled - Diagnosis (1) Left displaced femoral neck fracture Priority: Primary Status: Acute (2) Thoracic aneurysm without mention of rupture Priority: Secondary Status: Chronic (3) HTN (hypertension) Priority: Secondary Status: Chronic (4) HLD (hyperlipidemia) Priority: Secondary Status: Chronic (5) Pelvic fracture Priority: Secondary Status: Acute (6) Anemia Priority: Secondary Status: Acute Prognosis: Fair Aware of Diagnosis: Patient Aware of Prognosis: Patient - Transfer Medications Prescriptions: Acetaminophen [8Hr Arthritis Pain Relief] 650 mg PO Q8H #90 tablet.er Enoxaparin [Lovenox] 30 mg SQ 0600 #24 syringe Home Medications: Metoprolol Succinate [Toprol Xl] 100 mg PO DAILY 10/07/18 [History] Potassium Chloride [K-Tab ER] 20 meq PO DAILY 10/07/18 [History] Simvastatin [Zocor] 10 mg PO DAILY 10/07/18 [History] amLODIPine [Norvasc] 5 mg PO DAILY 10/07/18 [History] Mirtazapine [Remeron] 7.5 mg PO QPM 12/08/18 [History] Calcium Carbonate [Calcium] 500 mg PO DAILY 12/10/18 [History] Acetaminophen [8Hr Arthritis Pain Relief] 650 mg PO Q8H #90 tablet.er 12/12/18 [Rx] Enoxaparin [Lovenox] 30 mg SQ 0600 #24 syringe 12/12/18 [Rx] Allergies/Adverse Reactions: Allergy/AdvReac Type Severity Reaction Status Date / Time aspirin AdvReac Nausea Verified 12/10/18 14:11 - Respiratory Orders Smoking Cessation: Smoking cessation has been advised. For more information, call the [place] Tobacco Quit Line at 5-413-EDUI-NOW. - Lab Orders Lab Orders: CBC (weekly while patient is on lovenox) - Advance Directives Code Status: DNR-Arrest/Don't Intubate - Rehabiliation Orders Rehab Potential: Poor Rehab Orders: Evaluation for Physical Therapy, Evaluation for Occupational Therapy - Diet Orders Regular (As tolerated) CERTIFICATION: I certify that the transfer of the above named patient to an Extended Care Facility is necessary for the continuing treatment of the diagnosis listed. The above information is true and accurate reflection of patient's current condition. Confidential - Redisclosure prohibited without a patient's written consent.
[2018-12-12] MEDS: *HR* OxyCODONE Immed Rel 5 MG TABLET PO PRN (15:50)
--- NOTE | 2018-12-12 17:46 | Orthopedics Progress Note ---
Date of Encounter: 12/12/18 Time of Encounter: 12:00 - Assessment and Plan (1) Fracture of hip Current Visit: No Status: Acute Qualifiers: Encounter type: initial encounter Fracture type: closed Laterality: left Qualified Code(s): S72.002A - Fracture of unspecified part of neck of left femur, initial encounter for closed fracture Subjective Interval history: S: No new complaints. Pain controlled O: Afebrile and vital signs are stable Dressing is clean, dry, and intact. No significant pain with passive motion of the left hip. Neurovascularly intact distally A: Displaced left femoral neck fracture post left hemiarthroplasty P: Resume post op care Orthopedically stable Objective Vital signs: Vital Signs Temp Pulse Resp BP Pulse Ox 12/12/18 16:47 131/77 12/12/18 15:32 98.9 F 79 15 148/101 93 12/12/18 11:47 97.3 F L 86 16 127/86 92 12/12/18 11:32 98.6 F 89 16 136/95 93 12/12/18 07:39 99.3 F 90 14 129/86 96 12/12/18 03:29 98.4 F 82 15 134/88 96 12/11/18 23:33 99.1 F 89 14 122/77 92 12/11/18 20:30 96 12/11/18 18:39 99.1 F 69 16 127/80 96 Intake and Output 12/12/18 12/12/18 12/12/18 07:59 15:59 23:59 Intake Total 508 / 508 Output Total 550 / 550 300 / 300 Balance -550 / -550 208 / 208 Intake: Oral 240 / 240 Blood Product 268 / 268 Rbcs Leuko Poor As-1 Unit 268 / 268 [id number] Output: Urine 300 / 300 Catheter 550 / 550 Urethral (Carr) 550 / 550 Other: Meal Breakfast Percent of Meal Consumed 0% # Voids 1 - Labs CBC & BMP: 12/12/18 07:07 12/12/18 07:07 Labs: Abnormal lab results RBC 2.73 M/mcL (3.82-4.97) L 12/12/18 07:07 Hgb 7.9 g/dL (11.5-15.4) L 12/12/18 07:07 Hct 24.7 % (35.3-44.9) L 12/12/18 07:07 Plt Count 103 K/mcL (140-400) L 12/12/18 07:07 Nucleated RBCs/100 WBC 0.5 /100 WBC (0) H 12/12/18 07:07 PT 12.3 Seconds (9.4-12.1) H 12/08/18 21:18 Potassium 3.1 mEq/L (3.5-5.1) L 12/12/18 07:07 BUN 39 mg/dL (8-23) H 12/12/18 07:07 Est GFR (Non-Af Amer) 56 (> 60) L 12/12/18 07:07 BUN/Creatinine Ratio 41 (6-26) H 12/12/18 07:07 Glucose 122 mg/dL (70-105) H 12/12/18 07:07 Calculated Osmolality 301 (280-300) H 12/12/18 07:07 Calcium 8.2 mg/dL (8.6-10.3) L 12/12/18 07:07 Consult Discharge Plan - Plan Instructions: Joint Replacement Surgery (DC) Additional Instructions: DISCHARGE INSTRUCTIONS Dr. Draper Total Hip Replacement/Hip Hemiarthroplasty Wound Care -Keep wound / incision area clean and dry. -Dressing daily with dry gauze and paper tape. -No baths or swimming until otherwise instructed. Activity -No heavy lifting objects greater than 10 pounds. -No driving while on narcotic pain medication. -You may be weight-bear as tolerated on both of your lower extremities. -Use crutches or a walker for ambulation. -Posterior hip precautions for 6 weeks: No bending the hip past 90 degrees. Do not allow the leg to cross the midline of your body (adduction). No twisting motions. Ask your physical therapist to review these precautions with you. Reducing the Risk of Blood Clots -Lovenox 30 mg subcutaneously daily until 28 days after the surgery -Wear knee high compression hose 23 hours per day. Discharge Pain Medications -Per the hospitalist Follow-Up -Follow-up with Dr. Draper office in 2 weeks from the surgery date for a post- operative evaluation. -Call the office at [phone] to schedule or confirm your appointment. -Follow up with your primary care physician to discuss testing for bone mineral density. Referrals: Martin Garcia MD [Primary Care Provider] - (in 1-2 weeks) Kirk Draper MD [Partnered Physician] - (in 2-3 weeks) Ulysses Jones MD [Partnered Physician] - 12/17/18 9:30 am Prescriptions: Acetaminophen [8Hr Arthritis Pain Relief] 650 mg PO Q8H #90 tablet.er Enoxaparin [Lovenox] 30 mg SQ 0600 #24 syringe
[2018-12-12] MEDS: Mirtazapine 15 MG TABLET PO SCH (21:46)
[2018-12-13 06:54] LABS: Basophils % 0.4 %; Eosinophils # 0.2 K/mcL (0.0-0.6); Eosinophils % 2.5 %; Hematocrit 28.8 % (35.3-44.9); Hemoglobin 9.4 g/dL (11.5-15.4); Immature Granulocytes % 1.5 % (0-4); Lymphocytes % 11.2 %; Mean Corpuscular HGB Conc 32.6 g/dL (31.6-35.5); Mean Corpuscular Hemoglobin 29.8 pg (28.0-33.3); Mean Corpuscular Volume 91.4 fL (83.0-100.0); Mean Platelet Volume 12.2 fL (9.4-12.4); Monocytes # 0.9 K/mcL (0.0-1.3); Monocytes % 10.2 %; Neutrophils # 6.6 K/mcL (1.6-8.9); Nucleated Red Blood Cells 1.1 /100 WBC (0); Platelet Count 106 K/mcL (140-400); Red Blood Count 3.15 M/mcL (3.82-4.97); Red Cell Distribution Width 14.1 % (11.5-14.5); Segmented Neutrophils % 74.2 %
[2018-12-13] MEDS: *HR* Enoxaparin 30 MG/0.3 ML SYRINGE SQ SCH (07:01)
[2018-12-13 07:06] LABS: BUN/Creatinine Ratio 41 (6-26); Blood Urea Nitrogen 37 mg/dL (8-23); Calcium 8.5 mg/dL (8.6-10.3); Carbon Dioxide 28 mEq/L (23-29); Chloride 107 mEq/L (98-107); Glucose 118 mg/dL (70-105); Osmolality,Calculated 302 (280-300); Potassium 3.5 mEq/L (3.5-5.1); Sodium 141 mEq/L (136-145); eGFR For Non-African Americans 60 (> 60)
[2018-12-13] MEDS: Metoprolol XL (24 HR) Succ 50 MG TAB.ER.24H PO SCH (08:30)
[2018-12-13] MEDS: amLODIPine 5 MG TABLET PO SCH (08:30)
--- NOTE | 2018-12-13 10:17 | Orthopedics Progress Note ---
Date of Encounter: 12/13/18 Time of Encounter: 10:17 Subjective Interval history: S: No new complaints. Pain controlled O: Afebrile and vital signs are stable hg 9.4 Dressing is clean, dry, and intact. Neurovascularly intact distally A: s/p post left hemiarthroplasty P: Continue post op care Up with PT DVT ppx as scheduled Objective Vital signs: Vital Signs Temp Pulse Resp BP Pulse Ox 12/13/18 06:53 98.7 F 77 14 141/98 93 12/13/18 04:02 97.9 F 79 14 154/98 92 12/12/18 23:26 99.4 F 71 14 138/75 91 12/12/18 18:34 99.0 F 65 14 129/73 94 12/12/18 16:47 131/77 12/12/18 15:32 98.9 F 79 15 148/101 93 12/12/18 11:47 97.3 F L 86 16 127/86 92 12/12/18 11:32 98.6 F 89 16 136/95 93 Intake and Output 12/12/18 12/13/18 12/13/18 23:59 07:59 15:59 Intake Total 0 / 0 Output Total 350 / 350 200 / 200 Balance -350 / -350 -200 / -200 Intake: IV Fluids 0 / 0 0.9 % Sodium Chloride 250 ML @ 0 / 0 0 mls/hr .ROUTE .[facility] Rx #:[id number] Output: Catheter 350 / 350 200 / 200 Other: Meal Breakfast Percent of Meal Consumed 0% 5% Weight 41.3 kg Patient Weight 12/13/18 23:59 Weight 41.3 kg - Labs CBC & BMP: 12/13/18 05:54 12/13/18 05:54 Labs: Abnormal lab results RBC 3.15 M/mcL (3.82-4.97) L 12/13/18 05:54 Hgb 9.4 g/dL (11.5-15.4) L D 12/13/18 05:54 Hct 28.8 % (35.3-44.9) L 12/13/18 05:54 Plt Count 106 K/mcL (140-400) L 12/13/18 05:54 Nucleated RBCs/100 WBC 1.1 /100 WBC (0) H 12/13/18 05:54 PT 12.3 Seconds (9.4-12.1) H 12/08/18 21:18 BUN 37 mg/dL (8-23) H 12/13/18 05:54 BUN/Creatinine Ratio 41 (6-26) H 12/13/18 05:54 Glucose 118 mg/dL (70-105) H 12/13/18 05:54 Calculated Osmolality 302 (280-300) H 12/13/18 05:54 Calcium 8.5 mg/dL (8.6-10.3) L 12/13/18 05:54 Consult Discharge Plan - Plan Instructions: Joint Replacement Surgery (DC) Additional Instructions: DISCHARGE INSTRUCTIONS Dr. Draper Total Hip Replacement/Hip Hemiarthroplasty Wound Care -Keep wound / incision area clean and dry. -Dressing daily with dry gauze and paper tape. -No baths or swimming until otherwise instructed. Activity -No heavy lifting objects greater than 10 pounds. -No driving while on narcotic pain medication. -You may be weight-bear as tolerated on both of your lower extremities. -Use crutches or a walker for ambulation. -Posterior hip precautions for 6 weeks: No bending the hip past 90 degrees. Do not allow the leg to cross the midline of your body (adduction). No twisting motions. Ask your physical therapist to review these precautions with you. Reducing the Risk of Blood Clots -Lovenox 30 mg subcutaneously daily until 28 days after the surgery -Wear knee high compression hose 23 hours per day. Discharge Pain Medications -Per the hospitalist Follow-Up -Follow-up with Dr. Draper office in 2 weeks from the surgery date for a post- operative evaluation. -Call the office at [phone] to schedule or confirm your appointment. -Follow up with your primary care physician to discuss testing for bone mineral density. Referrals: Martin Garcia MD [Primary Care Provider] - (in 1-2 weeks) Kirk Draper MD [Partnered Physician] - (in 2-3 weeks) Ulysses Jones MD [Partnered Physician] - 12/17/18 9:30 am Prescriptions: Acetaminophen [8Hr Arthritis Pain Relief] 650 mg PO Q8H #90 tablet.er Enoxaparin [Lovenox] 30 mg SQ 0600 #24 syringe
--- NOTE | 2018-12-13 11:04 | Internal Med Progress Note ---
Hospitalist Progress Note - Encounter Date of Encounter: 12/13/18 Time of Encounter: 09:15 - Subjective Interval History: Patient is somnolent but easily awakes. Denies any new complaints at this time. Pain in her left hip is well controlled. No fevers or chills overnight. No nausea or vomiting. - Exam Vitals: Temp Pulse Resp BP Pulse Ox 98.7 F 77 14 141/98 93 12/13/18 06:53 12/13/18 06:53 12/13/18 06:53 12/13/18 06:53 12/13/18 06:53 Exam: General: Patient is alert, no acute distress, oriented x 3 ENT: Mucous membranes moist Respiratory: Good respiratory effort. Normal breath sounds. No wheezing or crackles. Cardiovascular: Regular rate and rhythm. s1 and s2 normal systolic murmur No pedal edema Abdomen: Abdomen is soft, nontender. Bowel sounds are present Musculoskeletal: Left hip tenderness Skin: warm, dry, intact. Neuro: Alert oriented x 3 normal cranial nerves, no focal deficits - Assessment and Plan (1) Left displaced femoral neck fracture Current Visit: Yes Status: Acute Assessment and Plan: Status post left hip hemiarthroplasty. Awaiting placement to skilled rehabilitation. On Lovenox for anticoagulation. Orthopedics following (2) Thoracic aneurysm without mention of rupture Current Visit: Yes Status: Chronic Assessment and Plan: Supportive care. Control blood pressure. Follow-up outpatient. (3) HTN (hypertension) Current Visit: Yes Status: Chronic Assessment and Plan: Continue amlodipine, metoprolol. (4) HLD (hyperlipidemia) Current Visit: Yes Status: Chronic Assessment and Plan: Continue Zocor (5) Pelvic fracture Current Visit: Yes Status: Chronic Assessment and Plan: Supportive care. Follow up outpatient. Continue PTOT (6) Anemia Current Visit: Yes Status: Acute Assessment and Plan: Improved after patient received 1 unit PRBC. Most likely related to fracture and intraoperative blood loss. DVT Prophylaxis: On subcutaneous Lovenox - Time Spent with Patient Total time spent is greater than 50% in coordination of care (as documented) at patient's floor/unit and/or counseling patient: Internal Medicine: Result - Labs CBC & Chem 7: 12/13/18 05:54 12/13/18 05:54 Labs: Short CBC 12/13/18 Range/Units 05:54 WBC 8.9 (4.3-11.1) K/mcL Hgb 9.4 L D (11.5-15.4) g/dL Hct 28.8 L (35.3-44.9) % Plt Count 106 L (140-400) K/mcL Neutrophils # 6.6 (1.6-8.9) K/mcL BMP 12/13/18 05:54 Sodium 141 Potassium 3.5 Chloride 107 Carbon Dioxide 28 BUN 37 H Creatinine 0.91 Glucose 118 H Calcium 8.5 L - ABG Interpretation ABG results: PT/INR, D-dimer PT 12.3 Seconds (9.4-12.1) H 12/08/18 21:18 Consult Discharge Plan - Plan Instructions: Joint Replacement Surgery (DC) Additional Instructions: DISCHARGE INSTRUCTIONS Dr. Draper Total Hip Replacement/Hip Hemiarthroplasty Wound Care -Keep wound / incision area clean and dry. -Dressing daily with dry gauze and paper tape. -No baths or swimming until otherwise instructed. Activity -No heavy lifting objects greater than 10 pounds. -No driving while on narcotic pain medication. -You may be weight-bear as tolerated on both of your lower extremities. -Use crutches or a walker for ambulation. -Posterior hip precautions for 6 weeks: No bending the hip past 90 degrees. Do not allow the leg to cross the midline of your body (adduction). No twisting motions. Ask your physical therapist to review these precautions with you. Reducing the Risk of Blood Clots -Lovenox 30 mg subcutaneously daily until 28 days after the surgery -Wear knee high compression hose 23 hours per day. Discharge Pain Medications -Per the hospitalist Follow-Up -Follow-up with Dr. Draper office in 2 weeks from the surgery date for a post- operative evaluation. -Call the office at [phone] to schedule or confirm your appointment. -Follow up with your primary care physician to discuss testing for bone mineral density. Referrals: Martin Garcia MD [Primary Care Provider] - (in 1-2 weeks) Kirk Draper MD [Partnered Physician] - (in 2-3 weeks) Ulysses Jones MD [Partnered Physician] - 12/17/18 9:30 am Prescriptions: Acetaminophen [8Hr Arthritis Pain Relief] 650 mg PO Q8H #90 tablet.er Enoxaparin [Lovenox] 30 mg SQ 0600 #24 syringe (2) Thoracic aneurysm without mention of rupture Qualifiers: Presence of rupture: without rupture Qualified Code(s): I71.2 - Thoracic aortic aneurysm, without rupture (3) HTN (hypertension) Qualifiers: Hypertension type: essential hypertension Qualified Code(s): I10 - Essential (primary) hypertension (4) HLD (hyperlipidemia) Qualifiers: Hyperlipidemia type: unspecified Qualified Code(s): E78.5 - Hyperlipidemia, unspecified (5) Pelvic fracture Qualifiers: Encounter type: initial encounter Pelvic bone location: multiple parts Fracture type: closed Fracture alignment: without disruption of pelvic ring Qualified Code(s): S32.82XA - Multiple fractures of pelvis without disruption of pelvic ring, initial encounter for closed fracture (6) Anemia Qualifiers: Anemia type: other cause Other causes of anemia: acute posthemorrhagic Qualified Code(s): D62 - Acute posthemorrhagic anemia
[2018-12-13] MEDS: Mirtazapine 15 MG TABLET PO SCH (19:56)
[2018-12-14] MEDS: *HR* Enoxaparin 30 MG/0.3 ML SYRINGE SQ SCH (06:19)
[2018-12-14] MEDS: Metoprolol XL (24 HR) Succ 50 MG TAB.ER.24H PO SCH (09:39)
[2018-12-14] MEDS: amLODIPine 5 MG TABLET PO SCH (09:39)
--- NOTE | 2018-12-14 13:40 | Internal Med Progress Note ---
Hospitalist Progress Note - Encounter Date of Encounter: 12/14/18 Time of Encounter: 13:37 - Subjective Interval History: I evaluated patient earlier today. Reports no new complaints at this time. Pain in her left hip is well controlled. Denies any fevers or chills. No nausea or vomiting. Tolerating diet well. - Exam Vitals: Temp Pulse Resp BP Pulse Ox 98.7 F 74 19 135/84 93 12/14/18 11:27 12/14/18 11:27 12/14/18 11:27 12/14/18 11:27 12/14/18 07:52 Exam: General: Patient is alert, no acute distress, oriented x 2 ENT: Mucous membranes moist Respiratory: Good respiratory effort. Normal breath sounds. No wheezing or crackles. Cardiovascular: Regular rate and rhythm. s1 and s2 normal; systolic murmur No pedal edema Abdomen: Abdomen is soft, nontender. Bowel sounds are present Musculoskeletal: Tenderness at left hip Skin: warm, dry, intact. Stage I coccygeal decubitus ulcer Neuro: Alert oriented x 2 normal cranial nerves, no focal deficits - Assessment and Plan (1) Left displaced femoral neck fracture Current Visit: Yes Status: Acute Assessment and Plan: Status post left hip hemiarthroplasty. Awaiting placement to skilled reha bilitation. Continue supportive care and PTOT (2) Thoracic aneurysm without mention of rupture Current Visit: Yes Status: Chronic Assessment and Plan: Conservative management. (3) HTN (hypertension) Current Visit: Yes Status: Chronic Assessment and Plan: Continue Toprol, amlodipine. Blood pressure is fairly controlled for her age (4) HLD (hyperlipidemia) Current Visit: Yes Status: Chronic Assessment and Plan: Continue simvastatin (5) Pelvic fracture Current Visit: Yes Status: Chronic Assessment and Plan: Supportive care. Physical therapy as tolerated. (6) Anemia Current Visit: Yes Status: Acute Assessment and Plan: Improved after blood transfusion. We will continue to monitor (7) Sacral decubitus ulcer Current Visit: Yes Status: Acute Assessment and Plan: Continue local wound care. Patient has stage I coccygeal ulcer - Time Spent with Patient Total time spent is greater than 50% in coordination of care (as documented) at patient's floor/unit and/or counseling patient: Internal Medicine: Result - Labs CBC & Chem 7: 12/13/18 05:54 12/13/18 05:54 - ABG Interpretation ABG results: PT/INR, D-dimer PT 12.3 Seconds (9.4-12.1) H 12/08/18 21:18 Consult Discharge Plan - Plan Instructions: Joint Replacement Surgery (DC) Additional Instructions: DISCHARGE INSTRUCTIONS Dr. Draper Total Hip Replacement/Hip Hemiarthroplasty Wound Care -Keep wound / incision area clean and dry. -Dressing daily with dry gauze and paper tape. -No baths or swimming until otherwise instructed. Activity -No heavy lifting objects greater than 10 pounds. -No driving while on narcotic pain medication. -You may be weight-bear as tolerated on both of your lower extremities. -Use crutches or a walker for ambulation. -Posterior hip precautions for 6 weeks: No bending the hip past 90 degrees. Do not allow the leg to cross the midline of your body (adduction). No twisting motions. Ask your physical therapist to review these precautions with you. Reducing the Risk of Blood Clots -Lovenox 30 mg subcutaneously daily until 28 days after the surgery -Wear knee high compression hose 23 hours per day. Discharge Pain Medications -Per the hospitalist Follow-Up -Follow-up with Dr. Draper office in 2 weeks from the surgery date for a post- operative evaluation. -Call the office at [phone] to schedule or confirm your appointment. -Follow up with your primary care physician to discuss testing for bone mineral density. Referrals: Martin Garcia MD [Primary Care Provider] - (in 1-2 weeks) Kirk Draper MD [Partnered Physician] - (in 2-3 weeks) Ulysses Jones MD [Partnered Physician] - 12/17/18 9:30 am Prescriptions: Acetaminophen [8Hr Arthritis Pain Relief] 650 mg PO Q8H #90 tablet.er Enoxaparin [Lovenox] 30 mg SQ 0600 #24 syringe (2) Thoracic aneurysm without mention of rupture Qualifiers: Presence of rupture: without rupture Qualified Code(s): I71.2 - Thoracic aortic aneurysm, without rupture (3) HTN (hypertension) Qualifiers: Hypertension type: essential hypertension Qualified Code(s): I10 - Essential (primary) hypertension (4) HLD (hyperlipidemia) Qualifiers: Hyperlipidemia type: unspecified Qualified Code(s): E78.5 - Hyperlipidemia, unspecified (5) Pelvic fracture Qualifiers: Encounter type: initial encounter Pelvic bone location: multiple parts Fracture type: closed Fracture alignment: without disruption of pelvic ring Qualified Code(s): S32.82XA - Multiple fractures of pelvis without disruption of pelvic ring, initial encounter for closed fracture (6) Anemia Qualifiers: Anemia type: other cause Other causes of anemia: acute posthemorrhagic Qualified Code(s): D62 - Acute posthemorrhagic anemia (7) Sacral decubitus ulcer Qualifiers: Pressure injury stage: stage 1 Qualified Code(s): L89.151 - Pressure ulcer of sacral region, stage 1
[2018-12-14] MEDS: Mirtazapine 15 MG TABLET PO SCH ×2 (20:27→20:29)
[2018-12-15 04:58] LABS: Basophils # 0.1 K/mcL (0.0-0.2); Basophils % 0.7 %; Eosinophils # 0.3 K/mcL (0.0-0.6); Eosinophils % 2.6 %; Hemoglobin 9.6 g/dL (11.5-15.4); Immature Granulocytes % 2.4 % (0-4); Lymphocytes # 1.4 K/mcL (0.6-4.6); Lymphocytes % 12.6 %; Mean Corpuscular Hemoglobin 30.2 pg (28.0-33.3); Mean Corpuscular Volume 94.3 fL (83.0-100.0); Mean Platelet Volume 11.1 fL (9.4-12.4); Monocytes # 1.1 K/mcL (0.0-1.3); Monocytes % 10.1 %; Neutrophils # 8.1 K/mcL (1.6-8.9); Nucleated Red Blood Cells 0.3 /100 WBC (0); Platelet Count 129 K/mcL (140-400); Red Blood Count 3.18 M/mcL (3.82-4.97); Red Cell Distribution Width 15.4 % (11.5-14.5); Segmented Neutrophils % 71.6 %
[2018-12-15] MEDS: *HR* Enoxaparin 30 MG/0.3 ML SYRINGE SQ SCH (06:20)
[2018-12-15] MEDS: Metoprolol XL (24 HR) Succ 50 MG TAB.ER.24H PO SCH (08:56)
[2018-12-15] MEDS: amLODIPine 5 MG TABLET PO SCH (08:57)
[2018-12-15 10:48] LABS: Bilirubin,Urine Negative (Negative); Blood,Urine Negative (Negative); Clarity,Urine Clear (Clear); Color,Urine Yellow (Yellow); Glucose,Urine (UA) Normal (Normal); Ketones,Urine Negative (Negative); Leukocyte Esterase,Urine Negative (Negative); Nitrite,Urine Negative (Negative); Protein,Urine 30 mg/dL (Neg-Trace); Specific Gravity,Urine 1.009 (1.010-1.025); Urobilinogen,Urine Normal (Normal)
[2018-12-15 10:51] LABS: Bacteria,Urine None Seen per hpf (None-Few); Hyaline Casts,Urine None Seen per lpf (None-Few); Squamous Epithelial Cell,Urine Many per lpf (None-Few); WBC,Urine 0-3 per hpf (0-3)
[2018-12-15] MEDS ORDERED: Levofloxacin 750 MG/150 ML 750 MG/150 ML BAG IVPB SCH (11:45)
[2018-12-15] MEDS ORDERED: Vancomycin 500 MG in 0.9 % Sodium Chloride Mini Bag 100 ML IVPB ONE (12:00)
[2018-12-15] MEDS ORDERED: Vancomycin 0 MG in 0.9 % Sodium Chloride 250 ML IVPB SCH (12:00)
[2018-12-15] MEDS: Piperacillin/Tazobactam 3.375 GM in 0.9 % Sodium Chloride Mini Bag 100 ML IVPB SCH ×2 (12:28→20:21)
--- NOTE | 2018-12-15 15:24 | Internal Med Progress Note ---
Hospitalist Progress Note - Encounter Date of Encounter: 12/15/18 Time of Encounter: 15:21 - Subjective Interval History: Patient doing well today. Was sitting up in chair when I saw her earlier today. Complains of some cough. No fever, chills reported. - Exam Vitals: Temp Pulse Resp BP Pulse Ox 97.9 F 84 17 132/88 98 12/15/18 15:13 12/15/18 15:13 12/15/18 15:13 12/15/18 15:13 12/15/18 15:13 Exam: General: Patient is alert, no acute distress, oriented x 3 ENT: Mucous membranes moist Respiratory: Decreased breath sounds at both bases Cardiovascular: Regular rate and rhythm. s1 and s2 normal systolic murmur. No pedal edema Abdomen: Abdomen is soft, nontender. Bowel sounds are present Musculoskeletal: Spontaneously moving all extremities Skin: warm, dry, intact. Neuro: Alert oriented x 3 normal cranial nerves, no focal deficits - Assessment and Plan (1) Pneumonia Current Visit: Yes Status: Suspected Assessment and Plan: Patient has leukocytosis and reports cough. Concern for developing pneumonia. Chest x-ray shows right lower lobe infiltrate. Given that she has been in the hospital for greater than 48 hours, will start treating her for possible healthcare associated pneumonia. Follow blood culture results. Check MRSA screen. (2) Left displaced femoral neck fracture Current Visit: Yes Status: Acute Assessment and Plan: Status post left hip hemiarthroplasty. Patient is recovering well. Continue PTOT. Awaiting placement to skilled rehabilitation once medically stable (3) Thoracic aneurysm without mention of rupture Current Visit: Yes Status: Chronic Assessment and Plan: Conservative management. Control blood pressure. Follow-up outpatient as needed. (4) HTN (hypertension) Current Visit: Yes Status: Chronic Assessment and Plan: Continue metoprolol, amlodipine (5) HLD (hyperlipidemia) Current Visit: Yes Status: Chronic Assessment and Plan: continue Zocor (6) Pelvic fracture Current Visit: Yes Status: Chronic Assessment and Plan: Chronic. Supportive care. PTOT. (7) Anemia Current Visit: Yes Status: Acute Assessment and Plan: Hemoglobin levels are stable. (8) Sacral decubitus ulcer Current Visit: Yes Status: Acute Assessment and Plan: Continue local wound care. Frequent repositioning DVT Prophylaxis: Continue Lovenox - Time Spent with Patient Total time spent is greater than 50% in coordination of care (as documented) at patient's floor/unit and/or counseling patient: Internal Medicine: Result - Labs CBC & Chem 7: 12/15/18 04:26 12/13/18 05:54 Labs: Short CBC 12/15/18 Range/Units 04:26 WBC 11.3 H (4.3-11.1) K/mcL Hgb 9.6 L (11.5-15.4) g/dL Hct 30.0 L (35.3-44.9) % Plt Count 129 L (140-400) K/mcL Neutrophils # 8.1 (1.6-8.9) K/mcL Urine 12/15/18 Range/Units 10:30 Urine Color Yellow (Yellow) Urine Clarity Clear (Clear) Urine pH 8.0 (5.0-8.0) pH Units Ur Specific Cecil 1.009 L (1.010-1.025) Urine Protein 30 H (Neg-Trace) mg/dL Urine Glucose (UA) Normal (Normal) mg/dL - ABG Interpretation ABG results: PT/INR, D-dimer PT 12.3 Seconds (9.4-12.1) H 12/08/18 21:18 - Impressions Impressions Chest X-Ray 12/15/18 07:56 IMPRESSION: Interval development of right basilar airspace disease and possible small right effusion which would be consistent with clinical concern of pneumonia. Focal pleural thickening or possible tiny left pleural effusion at the costophrenic angle. Large descending thoracic aortic aneurysm. D/ / Ketan Nguyen MD / Ketan Nguyen MD Interpreting Provider: Ketan Nguyen MD Consult Discharge Plan - Plan Instructions: Joint Replacement Surgery (DC) Additional Instructions: DISCHARGE INSTRUCTIONS Dr. Draper Total Hip Replacement/Hip Hemiarthroplasty Wound Care -Keep wound / incision area clean and dry. -Dressing daily with dry gauze and paper tape. -No baths or swimming until otherwise instructed. Activity -No heavy lifting objects greater than 10 pounds. -No driving while on narcotic pain medication. -You may be weight-bear as tolerated on both of your lower extremities. -Use crutches or a walker for ambulation. -Posterior hip precautions for 6 weeks: No bending the hip past 90 degrees. Do not allow the leg to cross the midline of your body (adduction). No twisting motions. Ask your physical therapist to review these precautions with you. Reducing the Risk of Blood Clots -Lovenox 30 mg subcutaneously daily until 28 days after the surgery -Wear knee high compression hose 23 hours per day. Discharge Pain Medications -Per the hospitalist Follow-Up -Follow-up with Dr. Draper office in 2 weeks from the surgery date for a post- operative evaluation. -Call the office at [phone] to schedule or confirm your appointment. -Follow up with your primary care physician to discuss testing for bone mineral density. Referrals: Martin Garcia MD [Primary Care Provider] - (in 1-2 weeks) Kirk Draper MD [Partnered Physician] - (in 2-3 weeks) Ulysses Jones MD [Partnered Physician] - 12/17/18 9:30 am Prescriptions: Acetaminophen [8Hr Arthritis Pain Relief] 650 mg PO Q8H #90 tablet.er Enoxaparin [Lovenox] 30 mg SQ 0600 #24 syringe (1) Pneumonia Qualifiers: Pneumonia type: due to methicillin-resistant Staphylococcus aureus (MRSA) Laterality: right Lung location: lower lobe of lung Qualified Code(s): J15.212 - Pneumonia due to Methicillin resistant Staphylococcus aureus (3) Thoracic aneurysm without mention of rupture Qualifiers: Presence of rupture: without rupture Qualified Code(s): I71.2 - Thoracic aortic aneurysm, without rupture (4) HTN (hypertension) Qualifiers: Hypertension type: essential hypertension Qualified Code(s): I10 - Essential (primary) hypertension (5) HLD (hyperlipidemia) Qualifiers: Hyperlipidemia type: unspecified Qualified Code(s): E78.5 - Hyperlipidemia, unspecified (6) Pelvic fracture Qualifiers: Encounter type: initial encounter Pelvic bone location: multiple parts Fracture type: closed Fracture alignment: without disruption of pelvic ring Qualified Code(s): S32.82XA - Multiple fractures of pelvis without disruption of pelvic ring, initial encounter for closed fracture (7) Anemia Qualifiers: Anemia type: other cause Other causes of anemia: acute posthemorrhagic Qualified Code(s): D62 - Acute posthemorrhagic anemia (8) Sacral decubitus ulcer Qualifiers: Pressure injury stage: stage 1 Qualified Code(s): L89.151 - Pressure ulcer of sacral region, stage 1
[2018-12-15] MEDS: Mirtazapine 15 MG TABLET PO SCH (20:21)
[2018-12-16] MEDS ORDERED: Vancomycin 500 MG in 0.9 % Sodium Chloride Mini Bag 100 ML IVPB SCH
[2018-12-16] MEDS: *HR* Enoxaparin 30 MG/0.3 ML SYRINGE SQ SCH (04:58)
[2018-12-16] MEDS: Piperacillin/Tazobactam 3.375 GM in 0.9 % Sodium Chloride Mini Bag 100 ML IVPB SCH ×2 (04:58→12:16)
[2018-12-16 08:25] LABS: Basophils # 0.1 K/mcL (0.0-0.2); Basophils % 0.7 %; Eosinophils # 0.3 K/mcL (0.0-0.6); Eosinophils % 2.7 %; Hematocrit 29.3 % (35.3-44.9); Hemoglobin 9.1 g/dL (11.5-15.4); Immature Granulocytes % 2.6 % (0-4); Lymphocytes # 1.2 K/mcL (0.6-4.6); Lymphocytes % 10.3 %; Mean Corpuscular HGB Conc 31.1 g/dL (31.6-35.5); Mean Corpuscular Hemoglobin 29.5 pg (28.0-33.3); Mean Corpuscular Volume 95.1 fL (83.0-100.0); Mean Platelet Volume 11.4 fL (9.4-12.4); Monocytes # 1.1 K/mcL (0.0-1.3); Monocytes % 9.4 %; Neutrophils # 8.9 K/mcL (1.6-8.9); Platelet Count 134 K/mcL (140-400); Red Blood Count 3.08 M/mcL (3.82-4.97); Red Cell Distribution Width 15.9 % (11.5-14.5); Segmented Neutrophils % 74.3 %
[2018-12-16 08:57] LABS: BUN/Creatinine Ratio 38 (6-26); Blood Urea Nitrogen 37 mg/dL (8-23); Calcium 8.5 mg/dL (8.6-10.3); Carbon Dioxide 26 mEq/L (23-29); Chloride 108 mEq/L (98-107); Glucose 114 mg/dL (70-105); Osmolality,Calculated 292 (280-300); Potassium 4.1 mEq/L (3.5-5.1); Sodium 136 mEq/L (136-145); eGFR For Non-African Americans 55 (> 60)
[2018-12-16] MEDS: amLODIPine 5 MG TABLET PO SCH (09:47)
[2018-12-16] MEDS: Metoprolol XL (24 HR) Succ 50 MG TAB.ER.24H PO SCH (09:47)
[2018-12-16 11:23] VITALS: BP 132/89
--- NOTE | 2018-12-16 14:08 | Discharge Summary ---
Orders not resulted at time of discharge: Pending orders 12/15/18 11:54 Culture,Blood [BC] Routine Date of Encounter: 12/16/18 Time of Encounter: 14:05 - Discharge Diagnosis (1) Pneumonia Status: Suspected Qualifiers: Pneumonia type: due to methicillin-resistant Staphylococcus aureus (MRSA) Laterality: right Lung location: lower lobe of lung Qualified Code(s): J15.212 - Pneumonia due to Methicillin resistant Staphylococcus aureus (2) Left displaced femoral neck fracture Status: Acute (3) Thoracic aneurysm without mention of rupture Status: Chronic Qualifiers: Presence of rupture: without rupture Qualified Code(s): I71.2 - Thoracic aortic aneurysm, without rupture (4) HTN (hypertension) Status: Chronic Qualifiers: Hypertension type: essential hypertension Qualified Code(s): I10 - Essential (primary) hypertension (5) HLD (hyperlipidemia) Status: Chronic Qualifiers: Hyperlipidemia type: unspecified Qualified Code(s): E78.5 - Hyperlipidemia, unspecified (6) Pelvic fracture Status: Chronic Qualifiers: Encounter type: initial encounter Pelvic bone location: multiple parts Fracture type: closed Fracture alignment: without disruption of pelvic ring Qualified Code(s): S32.82XA - Multiple fractures of pelvis without disruption of pelvic ring, initial encounter for closed fracture (7) Anemia Status: Acute Qualifiers: Anemia type: other cause Other causes of anemia: acute posthemorrhagic Qualified Code(s): D62 - Acute posthemorrhagic anemia (8) Sacral decubitus ulcer Status: Acute Qualifiers: Pressure injury stage: stage 1 Qualified Code(s): L89.151 - Pressure ulcer of sacral region, stage 1 Hospital course: Ms. Fields is a 78 year old female - Time Spent with Patient Total time spent providing and/or coordinating discharge services: - Discharge Medications Prescriptions: Acetaminophen [8Hr Arthritis Pain Relief] 650 mg PO Q8H #90 tablet.er Enoxaparin [Lovenox] 30 mg SQ 0600 #24 syringe Home Medications: Metoprolol Succinate [Toprol Xl] 100 mg PO DAILY 10/07/18 [History] Potassium Chloride [K-Tab ER] 20 meq PO DAILY 10/07/18 [History] Simvastatin [Zocor] 10 mg PO DAILY 10/07/18 [History] amLODIPine [Norvasc] 5 mg PO DAILY 10/07/18 [History] Mirtazapine [Remeron] 7.5 mg PO QPM 12/08/18 [History] Calcium Carbonate [Calcium] 500 mg PO DAILY 12/10/18 [History] Acetaminophen [8Hr Arthritis Pain Relief] 650 mg PO Q8H #90 tablet.er 12/12/18 [Rx] Enoxaparin [Lovenox] 30 mg SQ 0600 #24 syringe 12/12/18 [Rx] Allergies/Adverse Reactions: Allergy/AdvReac Type Severity Reaction Status Date / Time aspirin AdvReac Nausea Verified 12/10/18 14:11 Date of admission: 12/08/18 13:54 Primary care physician: Martin Garcia MD Consults: 12/09/18 19:27 Consult to Occupational Therapy [CONS] Routine Comment: Evaluate, develop and implement POC Reason for Consult: total hip replacement Does patient have active BEDREST order?: No Is patient medically & hemodynamically stable?: Yes Consult to Physical Therapy [CONS] Routine Comment: Evaluate, develop and implement POC Reason for Consult: total hip replacement Does patient have active BEDREST order?: No Is patient medically & hemodynamically stable?: Yes Consult to Casting Sorter [CONS] Routine Reason for SW Consult: post op joint replacement - Constitutional Vitals: Temp Pulse Resp BP Pulse Ox 97.5 F L 78 15 132/89 96 12/16/18 11:20 12/16/18 11:20 12/16/18 11:20 12/16/18 11:20 12/16/18 11:20 General appearance: Present: A&O X 2, no acute distress, answers questions appropriately - Patient Status Disposition: Transfer SNF Condition: Fair - Discharge Instructions Instructions: Joint Replacement Surgery (DC) Follow Up With: Martin Garcia MD [Primary Care Provider] - (in 1-2 weeks) Kirk Draper MD [Partnered Physician] - (in 2-3 weeks) Ulysses Jones MD [Partnered Physician] - 12/17/18 9:30 am Additional Instructions: DISCHARGE INSTRUCTIONS Dr. Draper Total Hip Replacement/Hip Hemiarthroplasty Wound Care -Keep wound / incision area clean and dry. -Dressing daily with dry gauze and paper tape. -No baths or swimming until otherwise instructed. Activity -No heavy lifting objects greater than 10 pounds. -No driving while on narcotic pain medication. -You may be weight-bear as tolerated on both of your lower extremities. -Use crutches or a walker for ambulation. -Posterior hip precautions for 6 weeks: No bending the hip past 90 degrees. Do not allow the leg to cross the midline of your body (adduction). No twisting motions. Ask your physical therapist to review these precautions with you. Reducing the Risk of Blood Clots -Lovenox 30 mg subcutaneously daily until 28 days after the surgery -Wear knee high compression hose 23 hours per day. Discharge Pain Medications -Per the hospitalist Follow-Up -Follow-up with Dr. Draper office in 2 weeks from the surgery date for a post- operative evaluation. -Call the office at [phone] to schedule or confirm your appointment. -Follow up with your primary care physician to discuss testing for bone mineral density.
--- NOTE | 2018-12-16 14:10 | Internal Med Progress Note ---
Hospitalist Progress Note - Encounter Date of Encounter: 12/16/18 Time of Encounter: 14:08 - Subjective Interval History: Patient feels much better. Tolerating diet well. Denies any cough. No fever or chills reported overnight. - Exam Vitals: Temp Pulse Resp BP Pulse Ox 97.5 F L 78 15 132/89 96 12/16/18 11:20 12/16/18 11:20 12/16/18 11:20 12/16/18 11:20 12/16/18 11:20 Exam: General: Patient is alert, no acute distress, oriented x 3 ENT: Mucous membranes moist Respiratory: Good respiratory effort. Normal breath sounds. No wheezing or crackles. Cardiovascular: Regular rate and rhythm. s1 and s2 normal No clicks, rubs, gallops, or murmurs. No pedal edema Abdomen: Abdomen is soft, nontender. Bowel sounds are present Musculoskeletal: Mild tenderness at left hip Skin: warm, dry, intact. Neuro: Alert oriented x 3 normal cranial nerves, no focal deficits - Assessment and Plan (1) Pneumonia Current Visit: Yes Status: Suspected Assessment and Plan: Clinically patient is feeling better. WBC count is 12 today. However as patient is clinically doing better and has not had any fevers or chills, she is stable to be discharged to skilled rehabilitation. She will be discharged on oral Augmentin and doxycycline to complete a 7 day treatment course. (2) Left displaced femoral neck fracture Current Visit: Yes Status: Acute Assessment and Plan: Status post left hip hemiarthroplasty. Plan to discharge to skilled rehabilitation today. (3) Thoracic aneurysm without mention of rupture Current Visit: Yes Status: Chronic (4) HTN (hypertension) Current Visit: Yes Status: Chronic Assessment and Plan: controlled. Continue current medications (5) HLD (hyperlipidemia) Current Visit: Yes Status: Chronic (6) Pelvic fracture Current Visit: Yes Status: Chronic Assessment and Plan: supportive care. Physical therapy as tolerated (7) Anemia Current Visit: Yes Status: Acute Assessment and Plan: improved. (8) Sacral decubitus ulcer Current Visit: Yes Status: Acute Assessment and Plan: Continue local wound care DVT Prophylaxis: Continue subcutaneous Lovenox - Time Spent with Patient Total time spent is greater than 50% in coordination of care (as documented) at patient's floor/unit and/or counseling patient: Internal Medicine: Result - Labs CBC & Chem 7: 12/16/18 07:59 12/16/18 07:59 Labs: Short CBC 12/16/18 Range/Units 07:59 WBC 12.0 H (4.3-11.1) K/mcL Hgb 9.1 L (11.5-15.4) g/dL Hct 29.3 L (35.3-44.9) % Plt Count 134 L (140-400) K/mcL Neutrophils # 8.9 (1.6-8.9) K/mcL BMP 12/16/18 07:59 Sodium 136 Potassium 4.1 Chloride 108 H Carbon Dioxide 26 BUN 37 H Creatinine 0.98 Glucose 114 H Calcium 8.5 L - ABG Interpretation ABG results: PT/INR, D-dimer PT 12.3 Seconds (9.4-12.1) H 12/08/18 21:18 Consult Discharge Plan - Plan Instructions: Joint Replacement Surgery (DC) Additional Instructions: DISCHARGE INSTRUCTIONS Dr. Draper Total Hip Replacement/Hip Hemiarthroplasty Wound Care -Keep wound / incision area clean and dry. -Dressing daily with dry gauze and paper tape. -No baths or swimming until otherwise instructed. Activity -No heavy lifting objects greater than 10 pounds. -No driving while on narcotic pain medication. -You may be weight-bear as tolerated on both of your lower extremities. -Use crutches or a walker for ambulation. -Posterior hip precautions for 6 weeks: No bending the hip past 90 degrees. Do not allow the leg to cross the midline of your body (adduction). No twisting motions. Ask your physical therapist to review these precautions with you. Reducing the Risk of Blood Clots -Lovenox 30 mg subcutaneously daily until 28 days after the surgery -Wear knee high compression hose 23 hours per day. Discharge Pain Medications -Per the hospitalist Follow-Up -Follow-up with Dr. Draper office in 2 weeks from the surgery date for a post- operative evaluation. -Call the office at [phone] to schedule or confirm your appointment. -Follow up with your primary care physician to discuss testing for bone mineral density. Referrals: Martin Garcia MD [Primary Care Provider] - (in 1-2 weeks) Kirk Draper MD [Partnered Physician] - (in 2-3 weeks) Ulysses Jones MD [Partnered Physician] - 12/17/18 9:30 am Prescriptions: Acetaminophen [8Hr Muscle Aches-Pain] 650 mg PO TID PRN #30 tablet.er PRN Reason: Analgesia/ Fever Acetaminophen [8Hr Arthritis Pain Relief] 650 mg PO Q8H #90 tablet.er Amoxicillin/Clavulanate [Augmentin] 500 mg PO BIDWM #12 tablet Doxycycline Hyclate 100 mg PO BID #12 tablet.dr Enoxaparin [Lovenox] 30 mg SQ 0600 #24 syringe Lactobacillus Acidophilus [Acidophilus] 1 each PO BID #10 tablet (1) Pneumonia Qualifiers: Pneumonia type: due to unspecified organism Laterality: right Lung location: lower lobe of lung Qualified Code(s): J18.1 - Lobar pneumonia, unspecified organism (3) Thoracic aneurysm without mention of rupture Qualifiers: Presence of rupture: without rupture Qualified Code(s): I71.2 - Thoracic aortic aneurysm, without rupture (4) HTN (hypertension) Qualifiers: Hypertension type: essential hypertension Qualified Code(s): I10 - Essential (primary) hypertension (5) HLD (hyperlipidemia) Qualifiers: Hyperlipidemia type: unspecified Qualified Code(s): E78.5 - Hyperlipidemia, unspecified (6) Pelvic fracture Qualifiers: Encounter type: initial encounter Pelvic bone location: multiple parts Fracture type: closed Fracture alignment: without disruption of pelvic ring Qualified Code(s): S32.82XA - Multiple fractures of pelvis without disruption of pelvic ring, initial encounter for closed fracture (7) Anemia Qualifiers: Anemia type: other cause Other causes of anemia: acute posthemorrhagic Qualified Code(s): D62 - Acute posthemorrhagic anemia (8) Sacral decubitus ulcer Qualifiers: Pressure injury stage: stage 1 Qualified Code(s): L89.151 - Pressure ulcer of sacral region, stage 1
--- NOTE | 2018-12-16 14:17 | Physician Discharge Referral ---
[facility] Referral Info Provider in Charge after Transfer: PCP Institutional Level of Care: Skilled - Diagnosis (1) Left displaced femoral neck fracture Priority: Primary Status: Acute (2) Pneumonia Priority: Secondary Status: Suspected (3) Thoracic aneurysm without mention of rupture Priority: Secondary Status: Chronic (4) HTN (hypertension) Priority: Secondary Status: Chronic (5) HLD (hyperlipidemia) Priority: Secondary Status: Chronic (6) Pelvic fracture Priority: Secondary Status: Chronic (7) Anemia Priority: Secondary Status: Acute (8) Sacral decubitus ulcer Priority: Secondary Status: Acute Prognosis: Fair Aware of Diagnosis: Patient, Family Aware of Prognosis: Patient, Family - Transfer Medications Prescriptions: Acetaminophen [8Hr Muscle Aches-Pain] 650 mg PO TID PRN #30 tablet.er PRN Reason: Analgesia/ Fever Acetaminophen [8Hr Arthritis Pain Relief] 650 mg PO Q8H #90 tablet.er Amoxicillin/Clavulanate [Augmentin] 500 mg PO BIDWM #12 tablet Doxycycline Hyclate 100 mg PO BID #12 tablet. Enoxaparin [Lovenox] 30 mg SQ 0600 #24 syringe Lactobacillus Acidophilus [Acidophilus] 1 each PO BID #10 tablet Home Medications: Metoprolol Succinate [Toprol Xl] 100 mg PO DAILY 10/07/18 [History] Potassium Chloride [K-Tab ER] 20 meq PO DAILY 10/07/18 [History] Simvastatin [Zocor] 10 mg PO DAILY 10/07/18 [History] amLODIPine [Norvasc] 5 mg PO DAILY 10/07/18 [History] Mirtazapine [Remeron] 7.5 mg PO QPM 12/08/18 [History] Calcium Carbonate [Calcium] 500 mg PO DAILY 12/10/18 [History] Acetaminophen [8Hr Arthritis Pain Relief] 650 mg PO Q8H #90 tablet.er 12/12/18 [Rx] Enoxaparin [Lovenox] 30 mg SQ 0600 #24 syringe 12/12/18 [Rx] Acetaminophen [8Hr Muscle Aches-Pain] 650 mg PO TID PRN #30 tablet.er 12/16/18 [Rx] Amoxicillin/Clavulanate [Augmentin] 500 mg PO BIDWM #12 tablet 12/16/18 [Rx] Doxycycline Hyclate 100 mg PO BID #12 tablet. 12/16/18 [Rx] Lactobacillus Acidophilus [Acidophilus] 1 each PO BID #10 tablet 12/16/18 [Rx] Allergies/Adverse Reactions: Allergy/AdvReac Type Severity Reaction Status Date / Time aspirin AdvReac Nausea Verified 12/10/18 14:11 - Respiratory Orders Smoking Cessation: Smoking cessation has been advised. For more information, call the [place] Tobacco Quit Line at 2-874-YFAY-NOW. - Advance Directives Code Status: DNR-Arrest/Don't Intubate - Mobility Orders Other (per PT) - Rehabiliation Orders Rehab Potential: Fair Rehab Orders: Evaluation for Physical Therapy, Evaluation for Occupational Therapy - Diet Orders Cardiac CERTIFICATION: I certify that the transfer of the above named patient to an Extended Care Facility is necessary for the continuing treatment of the diagnosis listed. The above information is true and accurate reflection of patient's current condition. Confidential - Redisclosure prohibited without a patient's written consent.
[2018-12-16] MEDS ORDERED: Aminoglycoside Consult 1 EACH MC ONE (15:32)
[2018-12-16] MEDS ORDERED: Amoxicillin/Clavulanate 500 MG TABLET PO SCH (17:00)
[2018-12-16] MEDS ORDERED: Doxycycline 100 MG CAPSULE PO SCH (21:00)
== END 2018-12-16 15:33 | DRG 956 ==
LOC: 3NENU → SUATTDRO 13:54
PROVIDERS: ADMIT Internal Medicine; ATTEND Internal Medicine